=== PATIENT | male | born 1930 | race Caucasian/White ===

== ENCOUNTER 2017-11-24 13:32 | Inpatient (IN) | payer MEDICARE, BC ==
[~2017-11-24] VITALS: Ht 179.1 cm; Wt 78.5 kg
[2017-11-24] MEDS ORDERED: LORazepam 2 MG/ML VIAL IM ONE ×2 (13:45→15:00)
[2017-11-24] MEDS ORDERED: HALOPERIDOL LACT 5 MG/ML VIAL. IM ONE (14:00)
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
[2017-11-24 14:28] LABS: BASO % 1 % (0-3); EOS # 0.2 x10^3/uL (0.0-0.7); EOS % 2 % (0-3); HEMATOCRIT 31.5 % (39.0-53.0); HEMOGLOBIN 10.1 g/dL (13.0-17.5); LYMPH # 1.2 x10^3/uL (1.0-4.8); LYMPH % 16 % (24-48); MEAN CORPUSCULAR HEMOGLOBIN 29 pg (25-35); MEAN CORPUSCULAR HGB CONC 32 g/dL (31-37); MEAN CORPUSCULAR VOLUME 90 fL (79-100); MONO # 0.9 x10^3/uL (0.0-1.1); MONO % 13 % (0-9); NEUT # 5.2 x10^3uL (1.8-7.7); NEUT % 69 % (31-73); PLATELET COUNT 309 x10^3/uL (140-400); RED BLOOD COUNT 3.51 x10^6/uL (4.30-5.70); RED CELL DISTRIBUTION WIDTH 18.2 % (11.5-14.5); WHITE BLOOD COUNT 7.5 x10^3/uL (4.0-11.0)
[2017-11-24 14:42] LABS: ALBUMIN 2.8 g/dL (3.4-5.0); ALBUMIN/GLOBULIN RATIO 0.7 (1.0-1.7); CALCIUM 8.8 mg/dL (8.5-10.1); CREATININE 2.2 mg/dL (0.7-1.3); GFR 28.4; MAGNESIUM 2.2 mg/dL (1.8-2.4); TOTAL BILIRUBIN 0.5 mg/dL (0.2-1.0); TOTAL PROTEIN 6.9 g/dL (6.4-8.2)
[2017-11-24 14:48] LABS: BILIRUBIN,URINE NEG (NEG); CLARITY,URINE CLEAR; COLOR,URINE AMBER; GLUCOSE,URINE NEG (NEG); NITRITE,URINE NEG (NEG); UROBILINOGEN,URINE 0.2 mg/dL (0.2 mg/dL)
[2017-11-24 14:49] LABS: BACTERIA,URINE 0 /HPF (0-FEW); HYALINE CASTS, URINE MOD /HPF; SQUAMOUS EPITHELIAL CELL,UR MOD /LPF
[2017-11-24] MEDS ORDERED: IV DEXTROSE 5% 1,000 ML IV ONE (16:00)
--- NOTE | 2017-11-24 17:35 | EKG ---
[address] [address] Test Date: 2017-11-24 Test Time: 15:06:18 Pat Name: CORAZON REESE Department: Room: [address] [place] [address] Gender: M Tumbler Drier Operator: ABHISHEK : [id number] Requested By: KEATON SANTOS Order Number: [id number] Reading MD: Chavez Griffin Measurements Intervals [place] Rate: 95 P: 90 WV: 156 QRS: 10 QRSD: 84 T: 152 QT: 348 QTc: 441 Interpretive Statements ATRIAL FIBRILLATION LOW LIMB LEAD VOLTAGE QRS(T) CONTOUR ABNORMALITY CONSIDER ANTEROLATERAL MYOCARDIAL DAMAGE ST & T ABNORMALITY, CONSIDER ANTERIOR ISCHEMIA OR LEFT VENTRICULAR STRAIN ABNORMAL ECG Electronically Signed On 12-03-2017 9:20:44 HARDWARE ENGINEER by Chavez Griffin
[2017-11-24 17:42] VITALS: BP 115/74
[2017-11-24] MEDS ORDERED: MAGNESIUM HYDROXIDE 2,400 MG/30 ML ORAL.SUSP. PO PRN (18:15)
[2017-11-24] MEDS ORDERED: MAG HYDROX/AL HYDROX/SIMETH 30 ML ORAL.SUSP PO PRN (18:15)
[2017-11-24] MEDS ORDERED: METHYL SALICYLATE/MENTHOL TOPICAL OINTMENT 29GM TUBE. TP PRN (18:15)
--- NOTE | 2017-11-24 18:30 | PDOC ---
Exam Note: Margarito Note: Please also refer to the separate dictated note~for this date of service dictated separately.~Patient seen individually. Discussed the patient with Nursing staff reviewed the chart.~Reviewed interim history and current functioning. Reviewed vital signs,~Labs/ Radiology~and current medications noted below. Continue current treatment with the changes noted in the dictated addendum note Assessment: Vital Signs: Vital Signs Date Time Temp Pulse Resp B/P (MAP) Pulse Ox O2 Delivery O2 Flow Rate FiO2 11/24/17 17:42 98.0 93 22 115/74 (88) 100 11/24/17 13:32 Room Air Labs: Laboratory Tests Test 11/24/17 14:10 11/24/17 14:18 White Blood Count 7.5 x10^3/uL (4.0-11.0) Red Blood Count 3.51 x10^6/uL (4.30-5.70) L Hemoglobin 10.1 g/dL (13.0-17.5) L Hematocrit 31.5 % (39.0-53.0) L Mean Corpuscular Volume 90 fL (79-100) Mean Corpuscular Hemoglobin 29 pg (25-35) Mean Corpuscular Hemoglobin Concent 32 g/dL (31-37) Red Cell Distribution Width 18.2 % (11.5-14.5) H Platelet Count 309 x10^3/uL (140-400) Neutrophils (%) (Auto) 69 % (31-73) Lymphocytes (%) (Auto) 16 % (24-48) L Monocytes (%) (Auto) 13 % (0-9) H Eosinophils (%) (Auto) 2 % (0-3) Basophils (%) (Auto) 1 % (0-3) Neutrophils # (Auto) 5.2 x10^3uL (1.8-7.7) Lymphocytes # (Auto) 1.2 x10^3/uL (1.0-4.8) Monocytes # (Auto) 0.9 x10^3/uL (0.0-1.1) Eosinophils # (Auto) 0.2 x10^3/uL (0.0-0.7) Basophils # (Auto) 0.0 x10^3/uL (0.0-0.2) Sodium Level 146 mmol/L (136-145) H Potassium Level 4.0 mmol/L (3.5-5.1) Chloride Level 113 mmol/L (98-107) H Carbon Dioxide Level 24 mmol/L (21-32) Anion Gap 9 (6-14) Blood Urea Nitrogen 27 mg/dL (8-26) H Creatinine 2.2 mg/dL (0.7-1.3) H Estimated GFR (Cockcroft-Gault) 28.4 BUN/Creatinine Ratio 12 (6-20) Glucose Level 104 mg/dL (70-99) H Calcium Level 8.8 mg/dL (8.5-10.1) Magnesium Level 2.2 mg/dL (1.8-2.4) Total Bilirubin 0.5 mg/dL (0.2-1.0) Aspartate Amino Transferase (AST) 24 U/L (15-37) Alanine Aminotransferase (ALT) 18 U/L (16-63) Alkaline Phosphatase 102 U/L (46-116) Creatine Kinase 221 U/L (39-308) Troponin I Quantitative 0.072 ng/mL (0-0.055) H Total Protein 6.9 g/dL (6.4-8.2) Albumin 2.8 g/dL (3.4-5.0) L Albumin/Globulin Ratio 0.7 (1.0-1.7) L Urine Collection Type U cath Urine Color Lety Urine Clarity Clear Urine pH 5.0 Urine Specific [place] 1.015 Urine Protein Trace (NEG-TRACE) Urine Glucose (UA) Neg mg/dL (NEG) Urine Ketones (Stick) 15 mg/dL (NEG) Urine Blood Neg (NEG) Urine Nitrite Neg (NEG) Urine Bilirubin Neg (NEG) Urine Urobilinogen Dipstick 0.2 mg/dL (0.2 mg/dL) Urine Leukocyte Esterase Neg (NEG) Urine RBC 3-5 /HPF (0-2) Urine WBC 1-4 /HPF (0-4) Urine Squamous Epithelial Cells Mod /LPF Urine Bacteria 0 /HPF (0-FEW) Urine Hyaline Casts Mod /HPF Urine Mucus Mod /LPF Current Medications: Meds: Current Medications Lorazepam (Ativan) 1 mg 1X ONCE IM Last administered on 11/24/17t 13:40; Start 11/24/17 at 13:45; Stop 11/24/17 at 13:46; Status DC Haloperidol Lactate (Haldol) 5 mg 1X ONCE IM Last administered on 11/24/17 14:00; Start 11/24/17 at 14:00; Stop 11/24/17 at 14:01; Status DC Lorazepam (Ativan) 1 mg 1X ONCE IM Last administered on 11/24/17 14:59; Start 11/24/17 at 15:00; Stop 11/24/17 at 15:02; Status DC Dextrose 1,000 ml @ 1,000 mls/hr 1X ONCE IV Last administered on 11/24/17 16:00; Start 11/24/17 at 16:00; Stop 11/24/17 at 17:05; Status DC Acetaminophen (Tylenol) 650 mg PRN Q6HRS PRN PO PAIN / TEMP; Start 11/24/17 at 18:15; Status UNV Multi-Ingredient Ointment (Analgesic Orient) 1 alba PRN QID PRN TP MUSCLE PAIN; Start 11/24/17 at 18:15; Status UNV Al Hydroxide/Mg Hydroxide (Mylanta Plus Xs) 15 ml PRN AFTMEALHC PRN PO DYSPEPSIA; Start 11/24/17 at 18:15; Status UNV Magnesium Hydroxide (Milk Of Magnesia) 2,400 mg PRN QHS PRN PO CONSTIPATION; Start 11/24/17 at 18:15; Status UNV I have reviewed the current psychotropics carefully including drug interactions. Risk benefit ratio favors no change other than as noted in my dictated progress note. Diagnosis: Problems: (1) Anxiety disorder (2) Dementia in Alzheimer's disease with delusions (3) Dementia in Alzheimer's disease with depression (4) Dementia, vascular, with depression (5) Dementia, vascular, with delusions (6) Impulse control disorder LORA WEST MD Nov 24, 2017 18:30
[2017-11-24] MEDS ORDERED: DILT120C80 PO (18:49)
[2017-11-24] MEDS ORDERED: ASPI81TA50 PO (18:49)
[2017-11-24] MEDS ORDERED: HYDR-2758 PO (18:49)
[2017-11-24] MEDS ORDERED: OXYC-323 PO (18:49)
[2017-11-24] MEDS ORDERED: ONDA4TAB12 PO (18:49)
[2017-11-24] MEDS ORDERED: ALLO300T67 PO (18:49)
[2017-11-24] MEDS ORDERED: LIDO30CR TP (18:49)
[2017-11-24] MEDS ORDERED: METO25TA4 PO (18:49)
[2017-11-24] MEDS ORDERED: ATOR20TA58 PO (18:49)
[2017-11-24] MEDS ORDERED: FINA5TAB4 PO (18:49)
[2017-11-24] MEDS ORDERED: TAMS0.4C2 PO (18:49)
[2017-11-24] MEDS ORDERED: LORA0.5T PO (18:50)
--- NOTE | 2017-11-24 19:52 | PDOC ---
Exam Note: Margarito Note: Please also refer to the separate dictated note~for this date of service dictated separately.~Patient seen individually. Discussed the patient with Nursing staff reviewed the chart.~Reviewed interim history and current functioning. Reviewed vital signs,~Labs/ Radiology~and current medications noted below. Continue current treatment with the changes noted in the dictated addendum note Assessment: Vital Signs: Vital Signs Date Time Temp Pulse Resp B/P (MAP) Pulse Ox O2 Delivery O2 Flow Rate FiO2 11/24/17 17:42 98.0 93 22 115/74 (88) 100 11/24/17 13:32 Room Air Labs: Laboratory Tests Test 11/24/17 14:10 11/24/17 14:18 White Blood Count 7.5 x10^3/uL (4.0-11.0) Red Blood Count 3.51 x10^6/uL (4.30-5.70) L Hemoglobin 10.1 g/dL (13.0-17.5) L Hematocrit 31.5 % (39.0-53.0) L Mean Corpuscular Volume 90 fL (79-100) Mean Corpuscular Hemoglobin 29 pg (25-35) Mean Corpuscular Hemoglobin Concent 32 g/dL (31-37) Red Cell Distribution Width 18.2 % (11.5-14.5) H Platelet Count 309 x10^3/uL (140-400) Neutrophils (%) (Auto) 69 % (31-73) Lymphocytes (%) (Auto) 16 % (24-48) L Monocytes (%) (Auto) 13 % (0-9) H Eosinophils (%) (Auto) 2 % (0-3) Basophils (%) (Auto) 1 % (0-3) Neutrophils # (Auto) 5.2 x10^3uL (1.8-7.7) Lymphocytes # (Auto) 1.2 x10^3/uL (1.0-4.8) Monocytes # (Auto) 0.9 x10^3/uL (0.0-1.1) Eosinophils # (Auto) 0.2 x10^3/uL (0.0-0.7) Basophils # (Auto) 0.0 x10^3/uL (0.0-0.2) Sodium Level 146 mmol/L (136-145) H Potassium Level 4.0 mmol/L (3.5-5.1) Chloride Level 113 mmol/L (98-107) H Carbon Dioxide Level 24 mmol/L (21-32) Anion Gap 9 (6-14) Blood Urea Nitrogen 27 mg/dL (8-26) H Creatinine 2.2 mg/dL (0.7-1.3) H Estimated GFR (Cockcroft-Gault) 28.4 BUN/Creatinine Ratio 12 (6-20) Glucose Level 104 mg/dL (70-99) H Calcium Level 8.8 mg/dL (8.5-10.1) Magnesium Level 2.2 mg/dL (1.8-2.4) Total Bilirubin 0.5 mg/dL (0.2-1.0) Aspartate Amino Transferase (AST) 24 U/L (15-37) Alanine Aminotransferase (ALT) 18 U/L (16-63) Alkaline Phosphatase 102 U/L (46-116) Creatine Kinase 221 U/L (39-308) Troponin I Quantitative 0.072 ng/mL (0-0.055) H Total Protein 6.9 g/dL (6.4-8.2) Albumin 2.8 g/dL (3.4-5.0) L Albumin/Globulin Ratio 0.7 (1.0-1.7) L Urine Collection Type U cath Urine Color Lety Urine Clarity Clear Urine pH 5.0 Urine Specific [place] 1.015 Urine Protein Trace (NEG-TRACE) Urine Glucose (UA) Neg mg/dL (NEG) Urine Ketones (Stick) 15 mg/dL (NEG) Urine Blood Neg (NEG) Urine Nitrite Neg (NEG) Urine Bilirubin Neg (NEG) Urine Urobilinogen Dipstick 0.2 mg/dL (0.2 mg/dL) Urine Leukocyte Esterase Neg (NEG) Urine RBC 3-5 /HPF (0-2) Urine WBC 1-4 /HPF (0-4) Urine Squamous Epithelial Cells Mod /LPF Urine Bacteria 0 /HPF (0-FEW) Urine Hyaline Casts Mod /HPF Urine Mucus Mod /LPF Current Medications: Meds: Current Medications Lorazepam (Ativan) 1 mg 1X ONCE IM Last administered on 11/24/17t 13:40; Start 11/24/17 at 13:45; Stop 11/24/17 at 13:46; Status DC Haloperidol Lactate (Haldol) 5 mg 1X ONCE IM Last administered on 11/24/17 14:00; Start 11/24/17 at 14:00; Stop 11/24/17 at 14:01; Status DC Lorazepam (Ativan) 1 mg 1X ONCE IM Last administered on 11/24/17 14:59; Start 11/24/17 at 15:00; Stop 11/24/17 at 15:02; Status DC Dextrose 1,000 ml @ 1,000 mls/hr 1X ONCE IV Last administered on 11/24/17 16:00; Start 11/24/17 at 16:00; Stop 11/24/17 at 17:05; Status DC Acetaminophen (Tylenol) 650 mg PRN Q6HRS PRN PO PAIN / TEMP; Start 11/24/17 at 18:15 Multi-Ingredient Ointment (Analgesic Wink) 1 giovanna PRN QID PRN TP MUSCLE PAIN; Start 11/24/17 at 18:15 Al Hydroxide/Mg Hydroxide (Mylanta Plus Xs) 15 ml PRN AFTMEALHC PRN PO DYSPEPSIA; Start 11/24/17 at 18:15 Magnesium Hydroxide (Milk Of Magnesia) 2,400 mg PRN QHS PRN PO CONSTIPATION; Start 11/24/17 at 18:15 Lorazepam (Ativan) 0.5 mg PRN Q6HRS PRN PO ANXIETY / AGITATION; Start at 19:00 Olanzapine (ZyPREXA ZYDIS) 2.5 mg PRN Q1HR PRN PO PSYCHOSIS; Start 11/24/17 at 19:00 Active Scripts Active Reported Lorazepam 0.5 Mg Tablet 1 Tab PO PRN Q6HRS PRN 14 Days Atorvastatin Calcium 20 Mg Tablet 1 Tab PO HS Aspir-Low (Aspirin) 81 Mg Tablet.dr 1 Tab PO DAILY Diltiazem 24HR Cd (Diltiazem Hcl) 120 Mg Cap.er.24h 1 Cap PO DAILY Finasteride 5 Mg Tablet 1 Tab PO DAILY Hydrocodone-Apap 5-325 (Hydrocodone Bit/Acetaminophen) 1 Each Tablet 1 Tab PO QID Metoprolol Tartrate 25 Mg Tablet 12.5 Mg PO BID Ondansetron Odt (Ondansetron) 4 Mg Tab.rapdis 1 Tab PO PRN Q6-8HRS Percocet 5-325 Mg Tablet (Oxycodone Hcl/Acetaminophen) 1 Each Tablet 1 Tab PO PRN Q4HRS PRN Tamsulosin Hcl 0.4 Mg Cap.er.24h 1 Cap PO HS Zyloprim (Allopurinol) 300 Mg Tablet 300 Mg PO DAILY Lidocaine-Prilocaine Cream (Lidocaine/Prilocaine) 30 Gm Cream..g. 1 Giovanna TP BID I have reviewed the current psychotropics carefully including drug interactions. Risk benefit ratio favors no change other than as noted in my dictated progress note. Diagnosis: Problems: (1) Dementia with behavioral disturbance (2) Anxiety disorder (3) Impulse control disorder (4) Dementia, vascular, with depression (5) Dementia, vascular, with delusions (6) Dementia in Alzheimer's disease with depression (7) Dementia in Alzheimer's disease with delusions LORA WEST MD Nov 24, 2017 19:52
[2017-11-24] MEDS: LORazepam 0.5 MG TABLET PO PRN (20:31)
--- NOTE | 2017-11-24 21:55 | HP ---
ADMIT DATE: 11/24/2017 This note covers elements not covered in my initial note of 11/24/2017. IDENTIFYING DATA: The patient is an 87-year-old male, referred to us from [facility] in [place], [place] by Dr. Mejia, his primary care physician, on account of increasing confusion, agitation, attempts to ambulate without assistance, screaming when by himself, sexually inappropriate, throwing himself on the floor repeatedly. All of this has worsened since he was under anesthesia, a few months back status post hip fracture after he fell at home. He has failed outpatient psychiatric interventions. CHIEF COMPLAINT: "No" The patient not very verbally interactive at all and been quite aggressive in the ER, received PRNs prior to coming up to us. HISTORY OF PRESENT ILLNESS: The patient has a history of dementia, Alzheimer's vascular type. He has been having some short-term memory deficits, but was at home sometime back when he fell, had a hip fracture, was under anesthesia for surgery and since then confusion has worsened along with this delusion, depression, marked aggression. He has had sleep and appetite changes. No active suicidal or homicidal ideation. No clear history of bipolar disorder. PAST PSYCHIATRIC HISTORY: As above. MEDICAL HISTORY: Heart failure, hypertension, chronic atrial fibrillation, abnormal weight loss, status post fracture and surgery, dysphagia, anemia, BPH, gout, chronic pain. DIET: Mechanical, soft honey-thickened. CODE STATUS: DNR. ALLERGIES: DIGOXIN. CURRENT PSYCHOTROPICS: Nothing scheduled other than the Ativan and Haldol he received in the ER due to his aggression prior to this referral, but we will start Zyprexa p.r.n. FAMILY HISTORY: Noncontributory. SOCIAL HISTORY: No history of alcohol, drug abuse, physical, sexual or elder abuse. He is not known to be a perpetrator. REACTION TO HOSPITALIZATION: The patient oblivious of the assets. Supportive family, [facility]. MENTAL STATUS EXAMINATION: The patient was seen individually evening of 11/24/2017. He is not very verbally interactive at all. Perhaps oriented just to himself if that. He is sedated from the PRNs in the ER. Insight, judgment, recent and remote memory, attention, concentration, fund of knowledge poor, consistent with his diagnosis. He seems to be in pain, per nursing observation. IMPRESSION: Major neurocognitive disorder, Alzheimer, vascular with depression, delusion, behavioral disturbance; anxiety disorder, unspecified; impulse control disorder, unspecified. Rest unchanged as above. PLAN: Admit to geropsychiatry unit at [facility]. I will see the patient daily individually from a psychiatric standpoint, medical followup per Dr. Carreno/Dr. Davison. Add Zyprexa p.r.n., observe baseline, then make further changes as clinically indicated. MAN Brayan WEST MD DR: LOVE/rbian JOB#: [id number] / [id number]
[2017-11-24] MEDS: ACETAMINOPHEN 325 MG TABLET PO PRN (22:22)
[2017-11-25] MEDS ORDERED: ONDANSETRON ODT 4 MG TAB.RAPDIS PO PRN (05:45)
[2017-11-25 08:29] LABS: BASO % 0 % (0-3); EOS # 0.1 x10^3/uL (0.0-0.7); EOS % 1 % (0-3); HEMATOCRIT 33.1 % (39.0-53.0); HEMOGLOBIN 10.7 g/dL (13.0-17.5); LYMPH # 0.6 x10^3/uL (1.0-4.8); LYMPH % 7 % (24-48); MEAN CORPUSCULAR HEMOGLOBIN 29 pg (25-35); MEAN CORPUSCULAR HGB CONC 32 g/dL (31-37); MEAN CORPUSCULAR VOLUME 89 fL (79-100); MONO # 0.7 x10^3/uL (0.0-1.1); MONO % 8 % (0-9); NEUT # 6.7 x10^3uL (1.8-7.7); NEUT % 83 % (31-73); PLATELET COUNT 308 x10^3/uL (140-400); RED BLOOD COUNT 3.71 x10^6/uL (4.30-5.70); WHITE BLOOD COUNT 8.1 x10^3/uL (4.0-11.0)
[2017-11-25 08:40] LABS: ALBUMIN 2.7 g/dL (3.4-5.0); ALBUMIN/GLOBULIN RATIO 0.6 (1.0-1.7); CALCIUM 8.7 mg/dL (8.5-10.1); CREATININE 1.9 mg/dL (0.7-1.3); GFR 33.6; MAGNESIUM 2.2 mg/dL (1.8-2.4); POTASSIUM 3.5 mmol/L (3.5-5.1); TOTAL BILIRUBIN 0.8 mg/dL (0.2-1.0); TOTAL PROTEIN 6.9 g/dL (6.4-8.2)
[2017-11-25] MEDS ORDERED: METOPROLOL TART IMMED RELEASE 25 MG TABLET PO SCH (09:00)
[2017-11-25] MEDS: HYDROcodone/APAP 5/325MG 1 TAB TABLET PO SCH ×5 (09:04→20:28)
[2017-11-25] MEDS: FINASTERIDE 5 MG TABLET PO SCH (09:04)
[2017-11-25] MEDS: ASPIRIN ENTERIC COATED 81 MG TABLET.DR. PO SCH (09:05)
[2017-11-25] MEDS: LIDOCAINE/PRILOCAINE TOPICAL CREAM 5GM TUBE. TP SCH ×2 (09:07→20:28)
[2017-11-25] MEDS: ALLOPURINOL 300 MG TABLET. PO SCH (09:07)
[2017-11-25] MEDS: QUEtiapine 25 MG TABLET. PO SCH ×3 (13:37→17:20)
[2017-11-25 14:19] LABS: THYROID STIM HORMONE (TSH) 4.077 uIU/mL (0.358-3.740)
[2017-11-25 16:04] VITALS: BP 111/61
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
--- NOTE | 2017-11-25 19:58 | PDOC ---
Exam Note: Margarito Note: Please also refer to the separate dictated note~for this date of service dictated separately.~Patient seen individually. Discussed the patient with Nursing staff reviewed the chart.~Reviewed interim history and current functioning. Reviewed vital signs,~Labs/ Radiology~and current medications noted below. Continue current treatment with the changes noted in the dictated addendum note Assessment: Vital Signs: Vital Signs Date Time Temp Pulse Resp B/P (MAP) Pulse Ox O2 Delivery O2 Flow Rate FiO2 11/25/17 16:04 97.5 63 18 111/61 (78) 96 Room Air I&O Intake and Output 11/25/17 07:00 Intake Total 1000 ml Balance 1000 ml Intake Oral 0 ml IV Total 1000 ml Labs: Laboratory Tests Test 11/25/17 07:27 White Blood Count 8.1 x10^3/uL (4.0-11.0) Red Blood Count 3.71 x10^6/uL (4.30-5.70) L Hemoglobin 10.7 g/dL (13.0-17.5) L Hematocrit 33.1 % (39.0-53.0) L Mean Corpuscular Volume 89 fL (79-100) Mean Corpuscular Hemoglobin 29 pg (25-35) Mean Corpuscular Hemoglobin Concent 32 g/dL (31-37) Red Cell Distribution Width 18.0 % (11.5-14.5) H Platelet Count 308 x10^3/uL (140-400) Neutrophils (%) (Auto) 83 % (31-73) H Lymphocytes (%) (Auto) 7 % (24-48) L Monocytes (%) (Auto) 8 % (0-9) Eosinophils (%) (Auto) 1 % (0-3) Basophils (%) (Auto) 0 % (0-3) Neutrophils # (Auto) 6.7 x10^3uL (1.8-7.7) Lymphocytes # (Auto) 0.6 x10^3/uL (1.0-4.8) L Monocytes # (Auto) 0.7 x10^3/uL (0.0-1.1) Eosinophils # (Auto) 0.1 x10^3/uL (0.0-0.7) Basophils # (Auto) 0.0 x10^3/uL (0.0-0.2) Sodium Level 143 mmol/L (136-145) Potassium Level 3.5 mmol/L (3.5-5.1) Chloride Level 110 mmol/L (98-107) H Carbon Dioxide Level 22 mmol/L (21-32) Anion Gap 11 (6-14) Blood Urea Nitrogen 26 mg/dL (8-26) Creatinine 1.9 mg/dL (0.7-1.3) H Estimated GFR (Cockcroft-Gault) 33.6 BUN/Creatinine Ratio 14 (6-20) Glucose Level 82 mg/dL (70-99) Calcium Level 8.7 mg/dL (8.5-10.1) Magnesium Level 2.2 mg/dL (1.8-2.4) Total Bilirubin 0.8 mg/dL (0.2-1.0) # Aspartate Amino Transferase (AST) 26 U/L (15-37) Alanine Aminotransferase (ALT) 18 U/L (16-63) Alkaline Phosphatase 103 U/L (46-116) Total Protein 6.9 g/dL (6.4-8.2) Albumin 2.7 g/dL (3.4-5.0) L Albumin/Globulin Ratio 0.6 (1.0-1.7) L Triglycerides Level 60 mg/dL (0-150) Cholesterol Level 90 mg/dL (0-200) LDL Cholesterol, Calculated 34 mg/dL (0-100) VLDL Cholesterol, Calculated 12 mg/dL (0-40) Non-HDL Cholesterol Calculated 46 mg/dL (0-129) HDL Cholesterol 44 mg/dL (40-60) Cholesterol/HDL Ratio 2.0 25-Hydroxy Vitamin D Total 17.0 ng/mL (30-100) L Thyroid Stimulating Hormone (TSH) 4.077 uIU/mL (0.358-3.740) Current Medications: Meds: Current Medications Lorazepam (Ativan) 1 mg 1X ONCE IM Last administered on 11/24/17 13:40; Start 11/24/17 at 13:45; Stop 11/24/17 at 13:46; Status DC Haloperidol Lactate (Haldol) 5 mg 1X ONCE IM Last administered on 11/24/17 14:00; Start 11/24/17 at 14:00; Stop 11/24/17 at 14:01; Status DC Lorazepam (Ativan) 1 mg 1X ONCE IM Last administered on 11/24/17 14:59; Start 11/24/17 at 15:00; Stop 11/24/17 at 15:02; Status DC Dextrose 1,000 ml @ 1,000 mls/hr 1X ONCE IV Last administered on 11/24/17 16:00; Start 11/24/17 at 16:00; Stop 11/24/17 at 17:05; Status DC Acetaminophen (Tylenol) 650 mg PRN Q6HRS PRN PO PAIN / TEMP Last administered on 11/24/17 22:22; Start 11/24/17 at 18:15 Multi-Ingredient Ointment (Analgesic [place]) 1 giovanna PRN QID PRN TP MUSCLE PAIN; Start 11/24/17 at 18:15 Al Hydroxide/Mg Hydroxide (Mylanta Plus Xs) 15 ml PRN AFTMEALHC PRN PO DYSPEPSIA; Start 11/24/17 at 18:15 Magnesium Hydroxide (Milk Of Magnesia) 2,400 mg PRN QHS PRN PO CONSTIPATION; Start 11/24/17 at 18:15 Lorazepam (Ativan) 0.5 mg PRN Q6HRS PRN PO ANXIETY / AGITATION Last administered on 11/24/17 20:31; Start 11/24/17 at 19:00 Olanzapine (ZyPREXA ZYDIS) 2.5 mg PRN Q1HR PRN PO PSYCHOSIS Last administered on 11/25/17 04:15; Start 11/24/17 at 19:00 Allopurinol (Zyloprim) 300 mg DAILY PO Last administered on 11/25/17 09:07; Start 11/25/17 at 09:00 Aspirin (Aspirin Enteric Coated) 81 mg DAILY PO Last administered on 09:05; Start 11/25/17 at 09:00 Atorvastatin Calcium (Lipitor) 20 mg HS PO ; Start 11/25/17 at 21:00 Diltiazem HCl (Cardizem 24hr Cd) 120 mg DAILY PO Last administered on 09:08; Start 11/25/17 at 09:00 Finasteride (Proscar) 5 mg DAILY PO Last administered on 11/25/17 09:04; Start 11/25/17 at 09:00 Acetaminophen/ Hydrocodone Bitart (Lortab 5/325) 1 tab QID PO Last administered on 11/25/17 17:20; Start 11/25/17 at 09:00 Lidocaine/ Prilocaine (Emla) 1 giovanna BID TP Last administered on 11/25/17 09:07 ; Start 11/25/17 at 09:00 Metoprolol Tartrate (Lopressor) 12.5 mg BID PO Last administered on 11/25/17 09:08; Start 11/25/17 at 09:00; Stop 11/25/17 at 12:11; Status DC Ondansetron HCl (Zofran Odt) 4 mg PRN Q6HRS PRN PO NAUSEA; Start 11/25/17 at 05:45 Tamsulosin HCl (Flomax) 0.4 mg HS PO ; Start 11/25/17 at 21:00 Trazodone HCl (Desyrel) 50 mg QHS PO ; Start 11/25/17 at 21:00 Trazodone HCl (Desyrel) 50 mg PRN QHS PRN PO INSOMNIA; Start 11/25/17 at 10:45 Sertraline HCl (Zoloft) 25 mg DAILY PO ; Start 11/26/17 at 09:00 Quetiapine Fumarate (SEROquel) 12.5 mg DAILY@0900,1300,1700 PO Last administered on 11/25/17 17:20; Start 11/25/17 at 13:00 Metoprolol Tartrate (Lopressor) 25 mg BID PO ; Start 11/25/17 at 21:00 Active Scripts Active Reported Lorazepam 0.5 Mg Tablet 1 Tab PO PRN Q6HRS PRN 14 Days Atorvastatin Calcium 20 Mg Tablet 1 Tab PO HS Aspir-Low (Aspirin) 81 Mg Tablet.dr 1 Tab PO DAILY Diltiazem 24HR Cd (Diltiazem Hcl) 120 Mg Cap.er.24h 1 Cap PO DAILY Finasteride 5 Mg Tablet 1 Tab PO DAILY Hydrocodone-Apap 5-325 (Hydrocodone Bit/Acetaminophen) 1 Each Tablet 1 Tab PO QID Metoprolol Tartrate 25 Mg Tablet 12.5 Mg PO BID Ondansetron Odt (Ondansetron) 4 Mg Tab.rapdis 1 Tab PO PRN Q6-8HRS Percocet 5-325 Mg Tablet (Oxycodone Hcl/Acetaminophen) 1 Each Tablet 1 Tab PO PRN Q4HRS PRN Tamsulosin Hcl 0.4 Mg Cap.er.24h 1 Cap PO HS Zyloprim (Allopurinol) 300 Mg Tablet 300 Mg PO DAILY Lidocaine-Prilocaine Cream (Lidocaine/Prilocaine) 30 Gm Cream..g. 1 Giovanna TP BID I have reviewed the current psychotropics carefully including drug interactions. Risk benefit ratio favors no change other than as noted in my dictated progress note. 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
[2017-11-25 20:14] LABS: T3 TOTAL 59 ng/dL (71-180); THYROXINE 5.8 ug/dL (4.5-12.0)
[2017-11-25] MEDS: traZODone 50 MG TABLET. PO SCH (20:22)
[2017-11-25] MEDS: TAMSULOSIN 0.4 MG CAP.ER.24H. PO SCH (20:22)
[2017-11-25] MEDS: METOPROLOL TART IMMED RELEASE 25 MG TABLET PO SCH (20:27)
[2017-11-25] MEDS: ATORVASTATIN CALCIUM 20 MG TABLET PO SCH (20:27)
[2017-11-25 23:15] VITALS: BP 120/63
[2017-11-25] MEDS: traZODone 50 MG TABLET. PO PRN (23:44)
[2017-11-26] VITALS (8 sets, daily range): BP systolic 99–122; BP diastolic 49–77
[2017-11-26 01:07] LABS: HEMOGLOBIN A1C 4.6 % (4.8-5.6)
[2017-11-26] MEDS: ALLOPURINOL 300 MG TABLET. PO SCH (08:44)
[2017-11-26] MEDS: FINASTERIDE 5 MG TABLET PO SCH (08:44)
[2017-11-26] MEDS: ASPIRIN ENTERIC COATED 81 MG TABLET.DR. PO SCH (08:44)
[2017-11-26] MEDS: METOPROLOL TART IMMED RELEASE 25 MG TABLET PO SCH ×2 (08:44→20:17)
[2017-11-26] MEDS: QUEtiapine 25 MG TABLET. PO SCH ×3 (08:45→17:50)
[2017-11-26] MEDS: LIDOCAINE/PRILOCAINE TOPICAL CREAM 5GM TUBE. TP SCH ×2 (08:47→20:19)
[2017-11-26] MEDS: SERTRALINE 25 MG TABLET. PO SCH (08:47)
[2017-11-26] MEDS: HYDROcodone/APAP 5/325MG 1 TAB TABLET PO SCH ×4 (08:48→20:19)
--- NOTE | 2017-11-26 17:50 | PDOC ---
Exam Note: Margarito Note: Please also refer to the separate dictated note~for this date of service dictated separately.~Patient seen individually. Discussed the patient with Nursing staff reviewed the chart.~Reviewed interim history and current functioning. Reviewed vital signs,~Labs/ Radiology~and current medications noted below. Continue current treatment with the changes noted in the dictated addendum note Assessment: Vital Signs: Vital Signs Date Time Temp Pulse Resp B/P (MAP) Pulse Ox O2 Delivery O2 Flow Rate FiO2 11/26/17 16:01 97.8 64 20 109/70 (83) 97 11/26/17 15:00 Room Air I&O Intake and Output 11/26/17 06:59 Intake Total 480 ml Balance 480 ml Intake Oral 480 ml # Bowel Movements 2 Current Medications: Meds: Current Medications Lorazepam (Ativan) 1 mg 1X ONCE IM Last administered on 11/24/17 13:40; Start 11/24/17 at 13:45; Stop 11/24/17 at 13:46; Status DC Haloperidol Lactate (Haldol) 5 mg 1X ONCE IM Last administered on 11/24/17 14:00; Start 11/24/17 at 14:00; Stop 11/24/17 at 14:01; Status DC Lorazepam (Ativan) 1 mg 1X ONCE IM Last administered on 11/24/17 14:59; Start 11/24/17 at 15:00; Stop 11/24/17 at 15:02; Status DC Dextrose 1,000 ml @ 1,000 mls/hr 1X ONCE IV Last administered on 11/24/17 16:00; Start 11/24/17 at 16:00; Stop 11/24/17 at 17:05; Status DC Acetaminophen (Tylenol) 650 mg PRN Q6HRS PRN PO PAIN / TEMP Last administered on 11/24/17 22:22; Start 11/24/17 at 18:15 Multi-Ingredient Ointment (Analgesic [place]) 1 giovanna PRN QID PRN TP MUSCLE PAIN; Start 11/24/17 at 18:15 Al Hydroxide/Mg Hydroxide (Mylanta Plus Xs) 15 ml PRN AFTMEALHC PRN PO DYSPEPSIA; Start 11/24/17 at 18:15 Magnesium Hydroxide (Milk Of Magnesia) 2,400 mg PRN QHS PRN PO CONSTIPATION; Start 11/24/17 at 18:15 Lorazepam (Ativan) 0.5 mg PRN Q6HRS PRN PO ANXIETY / AGITATION Last administered on 11/24/17 20:31; Start 11/24/17 at 19:00 Olanzapine (ZyPREXA ZYDIS) 2.5 mg PRN Q1HR PRN PO PSYCHOSIS Last administered on 11/25/17 04:15; Start 11/24/17 at 19:00 Allopurinol (Zyloprim) 300 mg DAILY PO Last administered on 11/26/17 08:44; Start 11/25/17 at 09:00 Aspirin (Aspirin Enteric Coated) 81 mg DAILY PO Last administered on 08:44; Start 11/25/17 at 09:00 Atorvastatin Calcium (Lipitor) 20 mg HS PO Last administered on 11/25/17 20: 27; Start 11/25/17 at 21:00 Diltiazem HCl (Cardizem 24hr Cd) 120 mg DAILY PO Last administered on 08:44; Start 11/25/17 at 09:00 Finasteride (Proscar) 5 mg DAILY PO Last administered on 11/26/17 08:44; Start 11/25/17 at 09:00 Acetaminophen/ Hydrocodone Bitart (Lortab 5/325) 1 tab QID PO Last administered on 11/26/17 13:58; Start 11/25/17 at 09:00 Lidocaine/ Prilocaine (Emla) 1 giovanna BID TP Last administered on 11/26/17 08:47 ; Start 11/25/17 at 09:00 Metoprolol Tartrate (Lopressor) 12.5 mg BID PO Last administered on 11/25/17 09:08; Start 11/25/17 at 09:00; Stop 11/25/17 at 12:11; Status DC Ondansetron HCl (Zofran Odt) 4 mg PRN Q6HRS PRN PO NAUSEA; Start 11/25/17 at 05:45 Tamsulosin HCl (Flomax) 0.4 mg HS PO Last administered on 11/25/17 20:22; Start 11/25/17 at 21:00 Trazodone HCl (Desyrel) 50 mg QHS PO Last administered on 11/25/17 20:22; Start 11/25/17 at 21:00 Trazodone HCl (Desyrel) 50 mg PRN QHS PRN PO INSOMNIA Last administered on 23:44; Start 11/25/17 at 10:45 Sertraline HCl (Zoloft) 25 mg DAILY PO Last administered on 11/26/17 08:47; Start 11/26/17 at 09:00 Quetiapine Fumarate (SEROquel) 12.5 mg DAILY@0900,1300,1700 PO Last administered on 11/26/17 13:56; Start 11/25/17 at 13:00 Metoprolol Tartrate (Lopressor) 25 mg BID PO Last administered on 11/26/17 08 :44; Start 11/25/17 at 21:00 Active Scripts Active Reported Lorazepam 0.5 Mg Tablet 1 Tab PO PRN Q6HRS PRN 14 Days Atorvastatin Calcium 20 Mg Tablet 1 Tab PO HS Aspir-Low (Aspirin) 81 Mg Tablet.dr 1 Tab PO DAILY Diltiazem 24HR Cd (Diltiazem Hcl) 120 Mg Cap.er.24h 1 Cap PO DAILY Finasteride 5 Mg Tablet 1 Tab PO DAILY Hydrocodone-Apap 5-325 (Hydrocodone Bit/Acetaminophen) 1 Each Tablet 1 Tab PO QID Metoprolol Tartrate 25 Mg Tablet 12.5 Mg PO BID Ondansetron Odt (Ondansetron) 4 Mg Tab.rapdis 1 Tab PO PRN Q6-8HRS Percocet 5-325 Mg Tablet (Oxycodone Hcl/Acetaminophen) 1 Each Tablet 1 Tab PO PRN Q4HRS PRN Tamsulosin Hcl 0.4 Mg Cap.er.24h 1 Cap PO HS Zyloprim (Allopurinol) 300 Mg Tablet 300 Mg PO DAILY Lidocaine-Prilocaine Cream (Lidocaine/Prilocaine) 30 Gm Cream..g. 1 Giovanna TP BID I have reviewed the current psychotropics carefully including drug interactions. Risk benefit ratio favors no change other than as noted in my dictated progress note. Diagnosis: Problems: (1) Dementia with behavioral disturbance (2) Dementia in Alzheimer's disease with delusions (3) Dementia in Alzheimer's disease with depression (4) Dementia, vascular, with delusions (5) Dementia, vascular, with depression (6) Impulse control disorder (7) Anxiety disorder LORA WEST MD Nov 26, 2017 17:50
--- NOTE | 2017-11-26 19:55 | PDOC ---
Exam Note: Margarito Note: Please also refer to the separate dictated note~for this date of service dictated separately.~Patient seen individually. Discussed the patient with Nursing staff reviewed the chart.~Reviewed interim history and current functioning. Reviewed vital signs,~Labs/ Radiology~and current medications noted below. Continue current treatment with the changes noted in the dictated addendum note Assessment: Vital Signs: Vital Signs Date Time Temp Pulse Resp B/P (MAP) Pulse Ox O2 Delivery O2 Flow Rate FiO2 11/26/17 19:21 97.5 82 16 119/68 (85) 95 Room Air I&O Intake and Output 11/26/17 07:00 Intake Total 480 ml Balance 480 ml Intake Oral 480 ml # Bowel Movements 2 Current Medications: Meds: Current Medications Lorazepam (Ativan) 1 mg 1X ONCE IM Last administered on 11/24/17 13:40; Start 11/24/17 at 13:45; Stop 11/24/17 at 13:46; Status DC Haloperidol Lactate (Haldol) 5 mg 1X ONCE IM Last administered on 11/24/17 14:00; Start 11/24/17 at 14:00; Stop 11/24/17 at 14:01; Status DC Lorazepam (Ativan) 1 mg 1X ONCE IM Last administered on 11/24/17 14:59; Start 11/24/17 at 15:00; Stop 11/24/17 at 15:02; Status DC Dextrose 1,000 ml @ 1,000 mls/hr 1X ONCE IV Last administered on 11/24/17 16:00; Start 11/24/17 at 16:00; Stop 11/24/17 at 17:05; Status DC Acetaminophen (Tylenol) 650 mg PRN Q6HRS PRN PO PAIN / TEMP Last administered on 11/24/17 22:22; Start 11/24/17 at 18:15 Multi-Ingredient Ointment (Analgesic [place]) 1 giovanna PRN QID PRN TP MUSCLE PAIN; Start 11/24/17 at 18:15 Al Hydroxide/Mg Hydroxide (Mylanta Plus Xs) 15 ml PRN AFTMEALHC PRN PO DYSPEPSIA; Start 11/24/17 at 18:15 Magnesium Hydroxide (Milk Of Magnesia) 2,400 mg PRN QHS PRN PO CONSTIPATION; Start 11/24/17 at 18:15 Lorazepam (Ativan) 0.5 mg PRN Q6HRS PRN PO ANXIETY / AGITATION Last administered on 11/24/17 20:31; Start 11/24/17 at 19:00 Olanzapine (ZyPREXA ZYDIS) 2.5 mg PRN Q1HR PRN PO PSYCHOSIS Last administered on 11/25/17 04:15; Start 11/24/17 at 19:00 Allopurinol (Zyloprim) 300 mg DAILY PO Last administered on 11/26/17 08:44; Start 11/25/17 at 09:00 Aspirin (Aspirin Enteric Coated) 81 mg DAILY PO Last administered on 08:44; Start 11/25/17 at 09:00 Atorvastatin Calcium (Lipitor) 20 mg HS PO Last administered on 11/25/17 20: 27; Start 11/25/17 at 21:00 Diltiazem HCl (Cardizem 24hr Cd) 120 mg DAILY PO Last administered on 08:44; Start 11/25/17 at 09:00 Finasteride (Proscar) 5 mg DAILY PO Last administered on 11/26/17 08:44; Start 11/25/17 at 09:00 Acetaminophen/ Hydrocodone Bitart (Lortab 5/325) 1 tab QID PO Last administered on 11/26/17 17:48; Start 11/25/17 at 09:00 Lidocaine/ Prilocaine (Emla) 1 giovanna BID TP Last administered on 11/26/17 08:47 ; Start 11/25/17 at 09:00 Metoprolol Tartrate (Lopressor) 12.5 mg BID PO Last administered on 11/25/17 09:08; Start 11/25/17 at 09:00; Stop 11/25/17 at 12:11; Status DC Ondansetron HCl (Zofran Odt) 4 mg PRN Q6HRS PRN PO NAUSEA; Start 11/25/17 at 05:45 Tamsulosin HCl (Flomax) 0.4 mg HS PO Last administered on 11/25/17 20:22; Start 11/25/17 at 21:00 Trazodone HCl (Desyrel) 50 mg QHS PO Last administered on 11/25/17 20:22; Start 11/25/17 at 21:00 Trazodone HCl (Desyrel) 50 mg PRN QHS PRN PO INSOMNIA Last administered on 23:44; Start 11/25/17 at 10:45 Sertraline HCl (Zoloft) 25 mg DAILY PO Last administered on 11/26/17 08:47; Start 11/26/17 at 09:00 Quetiapine Fumarate (SEROquel) 12.5 mg DAILY@0900,1300,1700 PO Last administered on 11/26/17 17:50; Start 11/25/17 at 13:00 Metoprolol Tartrate (Lopressor) 25 mg BID PO Last administered on 11/26/17 08 :44; Start 11/25/17 at 21:00 Active Scripts Active Reported Lorazepam 0.5 Mg Tablet 1 Tab PO PRN Q6HRS PRN 14 Days Atorvastatin Calcium 20 Mg Tablet 1 Tab PO HS Aspir-Low (Aspirin) 81 Mg Tablet.dr 1 Tab PO DAILY Diltiazem 24HR Cd (Diltiazem Hcl) 120 Mg Cap.er.24h 1 Cap PO DAILY Finasteride 5 Mg Tablet 1 Tab PO DAILY Hydrocodone-Apap 5-325 (Hydrocodone Bit/Acetaminophen) 1 Each Tablet 1 Tab PO QID Metoprolol Tartrate 25 Mg Tablet 12.5 Mg PO BID Ondansetron Odt (Ondansetron) 4 Mg Tab.rapdis 1 Tab PO PRN Q6-8HRS Percocet 5-325 Mg Tablet (Oxycodone Hcl/Acetaminophen) 1 Each Tablet 1 Tab PO PRN Q4HRS PRN Tamsulosin Hcl 0.4 Mg Cap.er.24h 1 Cap PO HS Zyloprim (Allopurinol) 300 Mg Tablet 300 Mg PO DAILY Lidocaine-Prilocaine Cream (Lidocaine/Prilocaine) 30 Gm Cream..g. 1 Giovanna TP BID I have reviewed the current psychotropics carefully including drug interactions. Risk benefit ratio favors no change other than as noted in my dictated progress note. Diagnosis: Problems: (1) Anxiety disorder (2) Impulse control disorder (3) Dementia, vascular, with depression (4) Dementia, vascular, with delusions (5) Dementia in Alzheimer's disease with depression (6) Dementia in Alzheimer's disease with delusions (7) Dementia with behavioral disturbance (8) Hypernatremia (9) Acute renal insufficiency (10) Troponin I above reference range LORA WEST MD Nov 26, 2017 19:55
[2017-11-26] MEDS: TAMSULOSIN 0.4 MG CAP.ER.24H. PO SCH (20:17)
[2017-11-26] MEDS: traZODone 50 MG TABLET. PO SCH (20:17)
[2017-11-26] MEDS: ATORVASTATIN CALCIUM 20 MG TABLET PO SCH (20:17)
[2017-11-26] MEDS: LORazepam 0.5 MG TABLET PO PRN (22:26)
[2017-11-27] MEDS: traZODone 50 MG TABLET. PO PRN ×2 (00:55→22:36)
[2017-11-27] MEDS ORDERED: oxyCODONE/APAP 5/325 1 TAB TABLET PO PRN (01:15)
--- NOTE | 2017-11-27 01:25 | PDOC ---
PROGRESS NOTES Assessment I was called by patient's nurse at 0115, who states pt has been "screaming in pain" all night. States they have already tried to give him his scheduled Lortab (at approx 2013), PRN lorazepam, and applied pain balm to his legs. Nothing has helped according to his nurse. Pt has a hx of being on oxycodone 5/ 325 po q 4 hours PRN for pain at the correction. I will restart this and d/c his hydrocodone. I urged pt's nurse to continue to use the non-medication means of trying to control pain and use the oxycodone only as a last resort. Pt is not able to adequately communicate his concerns, and pt's nurse states that he was also yelling out like this at the correction. Certainly it is likely that his mental health plays a role in his ability to deal with pain. Per nursing, there are no new physical findings to suggest that pt has a new problem causing him pain. I have asked them to do at least hourly checks overnight to make sure pt is not deteriorating. Dr. Carreno to address further in the morning. Problems: Objective Vital Signs Date Time Temp Pulse Resp B/P (MAP) Pulse Ox O2 Delivery O2 Flow Rate FiO2 11/26/17 23:10 97.9 78 26 99/58 (72) 95 Room Air Intake and Output 11/27/17 07:00 Intake Total 480 ml Balance 480 ml Intake Oral 480 ml # Bowel Movements 1 Review of Relevant I have reviewed the following items tarah (where applicable) has been applied. Labs Laboratory Tests Test 11/25/17 07:27 White Blood Count 8.1 x10^3/uL (4.0-11.0) Red Blood Count 3.71 x10^6/uL (4.30-5.70) Hemoglobin 10.7 g/dL (13.0-17.5) Hematocrit 33.1 % (39.0-53.0) Mean Corpuscular Volume 89 fL (79-100) Mean Corpuscular Hemoglobin 29 pg (25-35) Mean Corpuscular Hemoglobin Concent 32 g/dL (31-37) Red Cell Distribution Width 18.0 % (11.5-14.5) Platelet Count 308 x10^3/uL (140-400) Neutrophils (%) (Auto) 83 % (31-73) Lymphocytes (%) (Auto) 7 % (24-48) Monocytes (%) (Auto) 8 % (0-9) Eosinophils (%) (Auto) 1 % (0-3) Basophils (%) (Auto) 0 % (0-3) Neutrophils # (Auto) 6.7 x10^3uL (1.8-7.7) Lymphocytes # (Auto) 0.6 x10^3/uL (1.0-4.8) Monocytes # (Auto) 0.7 x10^3/uL (0.0-1.1) Eosinophils # (Auto) 0.1 x10^3/uL (0.0-0.7) Basophils # (Auto) 0.0 x10^3/uL (0.0-0.2) Sodium Level 143 mmol/L (136-145) Potassium Level 3.5 mmol/L (3.5-5.1) Chloride Level 110 mmol/L (98-107) Carbon Dioxide Level 22 mmol/L (21-32) Anion Gap 11 (6-14) Blood Urea Nitrogen 26 mg/dL (8-26) Creatinine 1.9 mg/dL (0.7-1.3) Estimated GFR (Cockcroft-Gault) 33.6 BUN/Creatinine Ratio 14 (6-20) Glucose Level 82 mg/dL (70-99) Hemoglobin A1c 4.6 % (4.8-5.6) Calcium Level 8.7 mg/dL (8.5-10.1) Magnesium Level 2.2 mg/dL (1.8-2.4) Total Bilirubin 0.8 mg/dL (0.2-1.0) Aspartate Amino Transf (AST/SGOT) 26 U/L (15-37) Alanine Aminotransferase (ALT/SGPT) 18 U/L (16-63) Alkaline Phosphatase 103 U/L (46-116) Total Protein 6.9 g/dL (6.4-8.2) Albumin 2.7 g/dL (3.4-5.0) Albumin/Globulin Ratio 0.6 (1.0-1.7) Triglycerides Level 60 mg/dL (0-150) Cholesterol Level 90 mg/dL (0-200) LDL Cholesterol, Calculated 34 mg/dL (0-100) VLDL Cholesterol, Calculated 12 mg/dL (0-40) Non-HDL Cholesterol Calculated 46 mg/dL (0-129) HDL Cholesterol 44 mg/dL (40-60) Cholesterol/HDL Ratio 2.0 25-Hydroxy Vitamin D Total 17.0 ng/mL (30-100) Thyroid Stimulating Hormone (TSH) 4.077 uIU/mL (0.358-3.740) Thyroxine (T4) 5.8 ug/dL (4.5-12.0) Total Triiodothyronine 59 ng/dL (71-180) Rapid Plasma Reagin Non reactive (Non Reactive) Medications Current Medications Lorazepam (Ativan) 1 mg 1X ONCE IM Last administered on 11/24/17 13:40; Start 11/24/17 at 13:45; Stop 11/24/17 at 13:46; Status DC Haloperidol Lactate (Haldol) 5 mg 1X ONCE IM Last administered on 11/24/17 14:00; Start 11/24/17 at 14:00; Stop 11/24/17 at 14:01; Status DC Lorazepam (Ativan) 1 mg 1X ONCE IM Last administered on 11/24/17 14:59; Start 11/24/17 at 15:00; Stop 11/24/17 at 15:02; Status DC Dextrose 1,000 ml @ 1,000 mls/hr 1X ONCE IV Last administered on 11/24/17 16:00; Start 11/24/17 at 16:00; Stop 11/24/17 at 17:05; Status DC Acetaminophen (Tylenol) 650 mg PRN Q6HRS PRN PO PAIN / TEMP Last administered on 11/24/17 22:22; Start 11/24/17 at 18:15 Multi-Ingredient Ointment (Analgesic [place]) 1 giovanna PRN QID PRN TP MUSCLE PAIN Last administered on 11/27/17 00:59; Start 11/24/17 at 18:15 Al Hydroxide/Mg Hydroxide (Mylanta Plus Xs) 15 ml PRN AFTMEALHC PRN PO DYSPEPSIA; Start 11/24/17 at 18:15 Magnesium Hydroxide (Milk Of Magnesia) 2,400 mg PRN QHS PRN PO CONSTIPATION; Start 11/24/17 at 18:15 Lorazepam (Ativan) 0.5 mg PRN Q6HRS PRN PO ANXIETY / AGITATION Last administered on 11/26/17 22:26; Start 11/24/17 at 19:00 Olanzapine (ZyPREXA ZYDIS) 2.5 mg PRN Q1HR PRN PO PSYCHOSIS Last administered on 11/25/17 04:15; Start 11/24/17 at 19:00 Allopurinol (Zyloprim) 300 mg DAILY PO Last administered on 11/26/17 08:44; Start 11/25/17 at 09:00 Aspirin (Aspirin Enteric Coated) 81 mg DAILY PO Last administered on 08:44; Start 11/25/17 at 09:00 Atorvastatin Calcium (Lipitor) 20 mg HS PO Last administered on 11/26/17 20: 17; Start 11/25/17 at 21:00 Diltiazem HCl (Cardizem 24hr Cd) 120 mg DAILY PO Last administered on 08:44; Start 11/25/17 at 09:00 Finasteride (Proscar) 5 mg DAILY PO Last administered on 11/26/17 08:44; Start 11/25/17 at 09:00 Acetaminophen/ Hydrocodone Bitart (Lortab 5/325) 1 tab QID PO Last administered on 11/26/17 20:19; Start 11/25/17 at 09:00; Stop 11/27/17 at 01 :18; Status DC Lidocaine/ Prilocaine (Emla) 1 giovanna BID TP Last administered on 11/26/17 20:19 ; Start 11/25/17 at 09:00 Metoprolol Tartrate (Lopressor) 12.5 mg BID PO Last administered on 11/25/17 09:08; Start 11/25/17 at 09:00; Stop 11/25/17 at 12:11; Status DC Ondansetron HCl (Zofran Odt) 4 mg PRN Q6HRS PRN PO NAUSEA; Start 11/25/17 at 05:45 Tamsulosin HCl (Flomax) 0.4 mg HS PO Last administered on 11/26/17 20:17; Start 11/25/17 at 21:00 Trazodone HCl (Desyrel) 50 mg QHS PO Last administered on 11/26/17 20:17; Start 11/25/17 at 21:00 Trazodone HCl (Desyrel) 50 mg PRN QHS PRN PO INSOMNIA Last administered on 00:55; Start 11/25/17 at 10:45 Sertraline HCl (Zoloft) 25 mg DAILY PO Last administered on 11/26/17 08:47; Start 11/26/17 at 09:00 Quetiapine Fumarate (SEROquel) 12.5 mg DAILY@0900,1300,1700 PO Last administered on 11/26/17 17:50; Start 11/25/17 at 13:00 Metoprolol Tartrate (Lopressor) 25 mg BID PO Last administered on 11/26/17 20 :17; Start 11/25/17 at 21:00 Oxycodone/ Acetaminophen (Percocet 5/325) 1 tab PRN Q6HRS PRN PO PAIN; Start 11/27/17 at 01:15; Status UNV Active Scripts Active Reported Lorazepam 0.5 Mg Tablet 1 Tab PO PRN Q6HRS PRN 14 Days Atorvastatin Calcium 20 Mg Tablet 1 Tab PO HS Aspir-Low (Aspirin) 81 Mg Tablet.dr 1 Tab PO DAILY Diltiazem 24HR Cd (Diltiazem Hcl) 120 Mg Cap.er.24h 1 Cap PO DAILY Finasteride 5 Mg Tablet 1 Tab PO DAILY Hydrocodone-Apap 5-325 (Hydrocodone Bit/Acetaminophen) 1 Each Tablet 1 Tab PO QID Metoprolol Tartrate 25 Mg Tablet 12.5 Mg PO BID Ondansetron Odt (Ondansetron) 4 Mg Tab.rapdis 1 Tab PO PRN Q6-8HRS Percocet 5-325 Mg Tablet (Oxycodone Hcl/Acetaminophen) 1 Each Tablet 1 Tab PO PRN Q4HRS PRN Tamsulosin Hcl 0.4 Mg Cap.er.24h 1 Cap PO HS Zyloprim (Allopurinol) 300 Mg Tablet 300 Mg PO DAILY Lidocaine-Prilocaine Cream (Lidocaine/Prilocaine) 30 Gm Cream..g. 1 Giovanna TP BID Vitals/I & O Vital Sign - Last 24 Hours 11/26/17 11/26/17 11/26/17 11/26/17 03:10 05:59 08:44 08:44 Temp 97.1 Pulse 70 85 85 85 Resp 16 B/P (MAP) 122/71 (88) 116/77 (90) 116/77 116/77 Pulse Ox 96 95 O2 Delivery Room Air 11/26/17 11/26/17 11/26/17 11/26/17 08:48 09:00 13:15 13:58 Pulse 61 71 Resp 18 20 B/P (MAP) 110/60 (77) 100/57 (71) Pulse Ox 95 97 98 98 O2 Delivery Room Air Room Air 11/26/17 11/26/17 11/26/17 11/26/17 16:01 17:48 19:21 20:17 Temp 97.8 97.5 Pulse 64 82 82 Resp 20 16 B/P (MAP) 109/70 (83) 119/68 (85) 119/68 Pulse Ox 97 95 O2 Delivery Room Air Room Air 11/26/17 11/26/17 11/26/17 11/26/17 20:19 21:55 21:55 23:10 Temp 97.9 Pulse 78 Resp 16 18 26 B/P (MAP) 100/49 (66) 99/58 (72) Pulse Ox 95 O2 Delivery Room Air Room Air Room Air Intake and Output 11/26/17 11/26/17 11/27/17 15:00 23:00 07:00 Intake Total 240 ml 240 ml Balance 240 ml 240 ml ANIKA AGUILAR MD Nov 27, 2017 01:25
[2017-11-27 01:30] VITALS: BP 105/48
[2017-11-27 06:05] VITALS: BP 103/52
[2017-11-27] MEDS: METOPROLOL TART IMMED RELEASE 25 MG TABLET PO SCH ×2 (08:59→20:59)
[2017-11-27] MEDS: ASPIRIN ENTERIC COATED 81 MG TABLET.DR. PO SCH (09:00)
[2017-11-27] MEDS: FINASTERIDE 5 MG TABLET PO SCH (09:00)
[2017-11-27] MEDS: ALLOPURINOL 300 MG TABLET. PO SCH (09:00)
[2017-11-27] MEDS: SERTRALINE 25 MG TABLET. PO SCH (09:00)
[2017-11-27] MEDS: QUEtiapine 25 MG TABLET. PO SCH ×3 (09:00→16:38)
--- NOTE | 2017-11-27 09:48 | RAD ---
Exam: Pelvis and right hip radiograph 11/27/2017 Indication: Pelvis and right hip pain. Comparison: None available. Technique: AP view of the pelvis and single view of the right hip. Findings: There is retained oral contrast within the bowel. 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 Sacrum appears intact. Mild degenerative changes of the sacroiliac joints are noted. There is atherosclerotic vascular calcification. Superior and inferior pubic rami are intact. Pubic symphysis is intact. 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 No lucency is identified surrounding the hardware. There is moderate axial joint space narrowing involving the right hip joint. There is mild subcortical sclerosis. There is no acute fracture or dislocation of the right hip joint. Mineralization is within normal limits. Impression: No acute fracture or dislocation. 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
[2017-11-27] MEDS: LIDOCAINE (700MG/PATCH) PATCH. TD SCH (11:19)
[2017-11-27] MEDS ORDERED: CHOLECALCIFEROL (VITAMIN D3) 50,000 UNIT CAPSULE PO SCH (12:00)
--- NOTE | 2017-11-27 14:04 | PN ---
DATE: 11/25/2017 PSYCHIATRIC PROGRESS NOTE This late entry of 11/25/2017 covers elements not covered in my initial note of 11/25/2017. Met with the patient evening of 11/25/2017 and the patient was staffed at a treatment team meeting with the entire team morning of 11/25/2017. Reviewed the patient's history. He slept 4-3/4 hours previous evening. P.r.n.'s do not seem to be helping his agitation, mood lability. He remains quite confused, has received Zyprexa and Ativan and Tylenol. REVIEW OF SYSTEMS: Ambulation impaired, in Broda chair. No CV, , pulmonary, eye, ENT system symptoms on review. Reliability poor. MENTAL STATUS EXAMINATION: Oriented to himself. Insight, judgment, recent and remote memory, attention, concentration, fund of knowledge poor, consistent with his diagnosis mentioned in my initial note. IMPRESSION: Major neurocognitive disorder, Alzheimer, vascular with depression, delusion, behavioral disturbance. Rest unchanged. PLAN: Start trazodone 50 mg at bedtime p.r.n., march repeat x 1; Seroquel 12.5 mg 9 a.m., 1 p.m. and 5 p.m.; Zoloft 25 mg p.o. daily for his mood and anxiety symptoms and the Seroquel as a mood stabilizer, trazodone for insomnia. We will adjust further as clinically indicated. LORA WEST MD DR: LOVE/brian JOB#: [id number] / [id number]
[2017-11-27 15:53] VITALS: BP 118/63
[2017-11-27] MEDS: ACETAMINOPHEN 325 MG TABLET PO PRN (15:58)
[2017-11-27] MEDS: LORazepam 0.5 MG TABLET PO PRN (15:58)
[2017-11-27] MEDS: oxyCODONE/APAP 5/325 1 TAB TABLET PO PRN (18:01)
[2017-11-27] MEDS: fentaNYL 25MCG/HR 1 PATCH PATCH TD SCH (18:02)
--- NOTE | 2017-11-27 19:14 | PDOC ---
Exam Note: Margarito Note: Please also refer to the separate dictated note~for this date of service dictated separately.~Patient seen individually. Discussed the patient with Nursing staff reviewed the chart.~Reviewed interim history and current functioning. Reviewed vital signs,~Labs/ Radiology~and current medications noted below. Continue current treatment with the changes noted in the dictated addendum note Assessment: Vital Signs: Vital Signs Date Time Temp Pulse Resp B/P (MAP) Pulse Ox O2 Delivery O2 Flow Rate FiO2 11/27/17 18:02 18 96 11/27/17 18:01 Room Air 11/27/17 15:53 97.6 69 118/63 (81) I&O Intake and Output 11/27/17 06:59 Intake Total 480 ml Balance 480 ml Intake Oral 480 ml # Bowel Movements 2 Current Medications: Meds: Current Medications Lorazepam (Ativan) 1 mg 1X ONCE IM Last administered on 11/24/17 13:40; Start 11/24/17 at 13:45; Stop 11/24/17 at 13:46; Status DC Haloperidol Lactate (Haldol) 5 mg 1X ONCE IM Last administered on 11/24/17 14:00; Start 11/24/17 at 14:00; Stop 11/24/17 at 14:01; Status DC Lorazepam (Ativan) 1 mg 1X ONCE IM Last administered on 11/24/17 14:59; Start 11/24/17 at 15:00; Stop 11/24/17 at 15:02; Status DC Dextrose 1,000 ml @ 1,000 mls/hr 1X ONCE IV Last administered on 11/24/17 16:00; Start 11/24/17 at 16:00; Stop 11/24/17 at 17:05; Status DC Acetaminophen (Tylenol) 650 mg PRN Q6HRS PRN PO PAIN / TEMP Last administered on 11/27/17 15:58; Start 11/24/17 at 18:15 Multi-Ingredient Ointment (Analgesic [place]) 1 giovanna PRN QID PRN TP MUSCLE PAIN Last administered on 11/27/17 00:59; Start 11/24/17 at 18:15 Al Hydroxide/Mg Hydroxide (Mylanta Plus Xs) 15 ml PRN AFTMEALHC PRN PO DYSPEPSIA; Start 11/24/17 at 18:15 Magnesium Hydroxide (Milk Of Magnesia) 2,400 mg PRN QHS PRN PO CONSTIPATION; Start 11/24/17 at 18:15 Lorazepam (Ativan) 0.5 mg PRN Q6HRS PRN PO ANXIETY / AGITATION Last administered on 11/27/17 15:58; Start 11/24/17 at 19:00 Olanzapine (ZyPREXA ZYDIS) 2.5 mg PRN Q1HR PRN PO PSYCHOSIS Last administered on 11/25/17 04:15; Start 11/24/17 at 19:00 Allopurinol (Zyloprim) 300 mg DAILY PO Last administered on 11/27/17 09:00; Start 11/25/17 at 09:00 Aspirin (Aspirin Enteric Coated) 81 mg DAILY PO Last administered on 09:00; Start 11/25/17 at 09:00 Atorvastatin Calcium (Lipitor) 20 mg HS PO Last administered on 11/26/17 20: 17; Start 11/25/17 at 21:00 Diltiazem HCl (Cardizem 24hr Cd) 120 mg DAILY PO Last administered on 08:59; Start 11/25/17 at 09:00 Finasteride (Proscar) 5 mg DAILY PO Last administered on 11/27/17 09:00; Start 11/25/17 at 09:00 Acetaminophen/ Hydrocodone Bitart (Lortab 5/325) 1 tab QID PO Last administered on 11/26/17 20:19; Start 11/25/17 at 09:00; Stop 11/27/17 at 01 :18; Status DC Lidocaine/ Prilocaine (Emla) 1 giovanna BID TP Last administered on 11/26/17 20:19 ; Start 11/25/17 at 09:00; Stop 11/27/17 at 09:06; Status DC Metoprolol Tartrate (Lopressor) 12.5 mg BID PO Last administered on 11/25/17 09:08; Start 11/25/17 at 09:00; Stop 11/25/17 at 12:11; Status DC Ondansetron HCl (Zofran Odt) 4 mg PRN Q6HRS PRN PO NAUSEA; Start 11/25/17 at 05:45 Tamsulosin HCl (Flomax) 0.4 mg HS PO Last administered on 11/26/17 20:17; Start 11/25/17 at 21:00 Trazodone HCl (Desyrel) 50 mg QHS PO Last administered on 11/26/17 20:17; Start 11/25/17 at 21:00 Trazodone HCl (Desyrel) 50 mg PRN QHS PRN PO INSOMNIA Last administered on 00:55; Start 11/25/17 at 10:45 Sertraline HCl (Zoloft) 25 mg DAILY PO Last administered on 11/27/17 09:00; Start 11/26/17 at 09:00 Quetiapine Fumarate (SEROquel) 12.5 mg DAILY@0900,1300,1700 PO Last administered on 11/27/17 16:38; Start 11/25/17 at 13:00 Metoprolol Tartrate (Lopressor) 25 mg BID PO Last administered on 11/26/17 20 :17; Start 11/25/17 at 21:00 Oxycodone/ Acetaminophen (Percocet 5/325) 1 tab PRN Q6HRS PRN PO PAIN Last administered on 11/27/17 11:19; Start 11/27/17 at 01:15; Stop 11/27/17 at 17 :51; Status DC Lidocaine (Lidoderm) 1 patch DAILY TD Last administered on 11/27/17 11:19; Start 11/27/17 at 09:00 Vitamin D (Vitamin D3) 50,000 unit WEEKLY PO Last administered on 11/27/17 12 :33; Start 11/27/17 at 12:00 Ferrous Sulfate (Feosol) 325 mg DAILYWBKFT PO ; Start 11/28/17 at 08:00 Fentanyl (Duragesic 25mcg/ Hr) 1 patch Q3DAYS TD Last administered on 18:02; Start 11/27/17 at 18:30 Ascorbic Acid (Vitamin C) 500 mg BID PO ; Start 11/27/17 at 21:00 Multivitamins/ Calcium (Thera-M Plus) 1 tab DAILY PO ; Start 11/28/17 at 09:00 Oxycodone/ Acetaminophen (Percocet 5/325) 1 tab PRN Q4HRS PRN PO PAIN Last administered on 12/30/17at 18:01; Start 11/27/17 at 18:00 Active Scripts Active Reported Lorazepam 0.5 Mg Tablet 1 Tab PO PRN Q6HRS PRN 14 Days Atorvastatin Calcium 20 Mg Tablet 1 Tab PO HS Aspir-Low (Aspirin) 81 Mg Tablet.dr 1 Tab PO DAILY Diltiazem 24HR Cd (Diltiazem Hcl) 120 Mg Cap.er.24h 1 Cap PO DAILY Finasteride 5 Mg Tablet 1 Tab PO DAILY Hydrocodone-Apap 5-325 (Hydrocodone Bit/Acetaminophen) 1 Each Tablet 1 Tab PO QID Metoprolol Tartrate 25 Mg Tablet 12.5 Mg PO BID Ondansetron Odt (Ondansetron) 4 Mg Tab.rapdis 1 Tab PO PRN Q6-8HRS Percocet 5-325 Mg Tablet (Oxycodone Hcl/Acetaminophen) 1 Each Tablet 1 Tab PO PRN Q4HRS PRN Tamsulosin Hcl 0.4 Mg Cap.er.24h 1 Cap PO HS Zyloprim (Allopurinol) 300 Mg Tablet 300 Mg PO DAILY Lidocaine-Prilocaine Cream (Lidocaine/Prilocaine) 30 Gm Cream..g. 1 Giovanna TP BID I have reviewed the current psychotropics carefully including drug interactions. Risk benefit ratio favors no change other than as noted in my dictated progress note. Diagnosis: Problems: (1) Dementia with behavioral disturbance (2) Dementia in Alzheimer's disease with delusions (3) Dementia in Alzheimer's disease with depression (4) Dementia, vascular, with delusions (5) Dementia, vascular, with depression (6) Impulse control disorder (7) Anxiety disorder LORA WEST MD Nov 27, 2017 19:14
[2017-11-27] MEDS: TAMSULOSIN 0.4 MG CAP.ER.24H. PO SCH (20:48)
[2017-11-27] MEDS: ATORVASTATIN CALCIUM 20 MG TABLET PO SCH (20:48)
[2017-11-27] MEDS: traZODone 50 MG TABLET. PO SCH (20:48)
[2017-11-27] MEDS: ASCORBIC ACID 500 MG TABLET PO SCH (20:50)
[2017-11-27] MEDS: MIRTAZAPINE 7.5 MG TABLET. PO SCH (20:50)
[2017-11-28 04:05] VITALS: BP 127/75
[2017-11-28] MEDS: oxyCODONE/APAP 5/325 1 TAB TABLET PO PRN ×2 (04:05→13:20)
[2017-11-28 06:06] VITALS: BP 110/63
[2017-11-28] MEDS: METOPROLOL TART IMMED RELEASE 25 MG TABLET PO SCH ×2 (09:00→19:22)
[2017-11-28] MEDS: LIDOCAINE (700MG/PATCH) PATCH. TD SCH (09:16)
[2017-11-28] MEDS: FINASTERIDE 5 MG TABLET PO SCH (09:16)
[2017-11-28] MEDS: QUEtiapine 25 MG TABLET. PO SCH ×3 (09:19→17:06)
[2017-11-28] MEDS: ASPIRIN ENTERIC COATED 81 MG TABLET.DR. PO SCH (09:21)
[2017-11-28] MEDS: ALLOPURINOL 300 MG TABLET. PO SCH (09:21)
[2017-11-28] MEDS: ASCORBIC ACID 500 MG TABLET PO SCH ×2 (09:21→19:22)
[2017-11-28] MEDS: DULoxetine HCL 30 MG CAPSULE.DR PO SCH (09:26)
[2017-11-28] MEDS: MULTIVITAMIN with MINERAL TABLET. PO SCH (09:27)
[2017-11-28] MEDS: FERROUS SULFATE 325 MG TABLET. PO SCH (09:27)
--- NOTE | 2017-11-28 09:48 | PN ---
DATE: 11/26/2017 PSYCHIATRIC PROGRESS NOTE This is a late entry, date of service 11/26/2017, covers elements not covered in my initial note of 11/26/2017. SUBJECTIVE: I met with the patient the evening of 11/26/2017. Previous evening, he was somewhat drowsy, slept 6-3/4 hours, received trazodone at midnight since he woke up and was restless, asking for wanting to get out and not from his bed. REVIEW OF SYSTEMS: No CV, , pulmonary, eye, ENT system symptoms on review. Reliability poor. Gait unsteady, in wheelchair/Broda chair. MENTAL STATUS EXAM: Oriented to himself. Insight, judgment, recent and remote memory, attention, concentration, fund of knowledge poor, consistent with his diagnoses mentioned in my initial note. IMPRESSION: Major neurocognitive disorder, Alzheimer vascular with depression, delusion, behavioral disturbance. Rest unchanged. PLAN: Continue psychotropics mentioned in my initial note. Adjust further as clinically indicated. MAN Brayan WEST MD DR: LOVE/brian JOB#: [id number] / [id number]
[2017-11-28 15:56] VITALS: BP 92/51
[2017-11-28] MEDS: traZODone 50 MG TABLET. PO SCH (19:21)
[2017-11-28] MEDS: MIRTAZAPINE 7.5 MG TABLET. PO SCH (19:21)
[2017-11-28] MEDS: TAMSULOSIN 0.4 MG CAP.ER.24H. PO SCH (19:22)
[2017-11-28] MEDS: ATORVASTATIN CALCIUM 20 MG TABLET PO SCH (19:22)
[2017-11-28 19:28] VITALS: BP 115/70
--- NOTE | 2017-11-28 20:20 | PDOC ---
Exam Note: Margarito Note: Please also refer to the separate dictated note~for this date of service dictated separately.~Patient seen individually. Discussed the patient with Nursing staff reviewed the chart.~Reviewed interim history and current functioning. Reviewed vital signs,~Labs/ Radiology~and current medications noted below. Continue current treatment with the changes noted in the dictated addendum note Assessment: Vital Signs: Vital Signs Date Time Temp Pulse Resp B/P (MAP) Pulse Ox O2 Delivery O2 Flow Rate FiO2 11/28/17 19:28 97.5 64 18 115/70 (85) 94 Room Air I&O Intake and Output 11/28/17 07:00 Intake Total 480 ml Balance 480 ml Intake Oral 480 ml Current Medications: Meds: Current Medications Lorazepam (Ativan) 1 mg 1X ONCE IM Last administered on 11/24/17 13:40; Start 11/24/17 at 13:45; Stop 11/24/17 at 13:46; Status DC Haloperidol Lactate (Haldol) 5 mg 1X ONCE IM Last administered on 11/24/17 14:00; Start 11/24/17 at 14:00; Stop 11/24/17 at 14:01; Status DC Lorazepam (Ativan) 1 mg 1X ONCE IM Last administered on 11/24/17 14:59; Start 11/24/17 at 15:00; Stop 11/24/17 at 15:02; Status DC Dextrose 1,000 ml @ 1,000 mls/hr 1X ONCE IV Last administered on 11/24/17 16:00; Start 11/24/17 at 16:00; Stop 11/24/17 at 17:05; Status DC Acetaminophen (Tylenol) 650 mg PRN Q6HRS PRN PO PAIN / TEMP Last administered on 11/27/17 15:58; Start 11/24/17 at 18:15 Multi-Ingredient Ointment (Analgesic [place]) 1 giovanna PRN QID PRN TP MUSCLE PAIN Last administered on 11/27/17 00:59; Start 11/24/17 at 18:15 Al Hydroxide/Mg Hydroxide (Mylanta Plus Xs) 15 ml PRN AFTMEALHC PRN PO DYSPEPSIA; Start 11/24/17 at 18:15 Magnesium Hydroxide (Milk Of Magnesia) 2,400 mg PRN QHS PRN PO CONSTIPATION; Start 11/24/17 at 18:15 Lorazepam (Ativan) 0.5 mg PRN Q6HRS PRN PO ANXIETY / AGITATION Last administered on 11/27/17 15:58; Start 11/24/17 at 19:00 Olanzapine (ZyPREXA ZYDIS) 2.5 mg PRN Q1HR PRN PO PSYCHOSIS Last administered on 11/25/17 04:15; Start 11/24/17 at 19:00 Allopurinol (Zyloprim) 300 mg DAILY PO Last administered on 11/28/17 09:21; Start 11/25/17 at 09:00 Aspirin (Aspirin Enteric Coated) 81 mg DAILY PO Last administered on 09:21; Start 11/25/17 at 09:00 Atorvastatin Calcium (Lipitor) 20 mg HS PO Last administered on 11/28/17 19: 22; Start 11/25/17 at 21:00 Diltiazem HCl (Cardizem 24hr Cd) 120 mg DAILY PO Last administered on 09:22; Start 11/25/17 at 09:00 Finasteride (Proscar) 5 mg DAILY PO Last administered on 11/28/17 09:16; Start 11/25/17 at 09:00 Acetaminophen/ Hydrocodone Bitart (Lortab 5/325) 1 tab QID PO Last administered on 11/26/17 20:19; Start 11/25/17 at 09:00; Stop 11/27/17 at 01 :18; Status DC Lidocaine/ Prilocaine (Emla) 1 giovanna BID TP Last administered on 11/26/17 20:19 ; Start 11/25/17 at 09:00; Stop 11/27/17 at 09:06; Status DC Metoprolol Tartrate (Lopressor) 12.5 mg BID PO Last administered on 11/25/17 09:08; Start 11/25/17 at 09:00; Stop 11/25/17 at 12:11; Status DC Ondansetron HCl (Zofran Odt) 4 mg PRN Q6HRS PRN PO NAUSEA; Start 11/25/17 at 05:45 Tamsulosin HCl (Flomax) 0.4 mg HS PO Last administered on 11/28/17 19:22; Start 11/25/17 at 21:00 Trazodone HCl (Desyrel) 50 mg QHS PO Last administered on 11/28/17 19:21; Start 11/25/17 at 21:00 Trazodone HCl (Desyrel) 50 mg PRN QHS PRN PO INSOMNIA Last administered on 22:36; Start 11/25/17 at 10:45 Sertraline HCl (Zoloft) 25 mg DAILY PO Last administered on 11/27/17 09:00; Start 11/26/17 at 09:00; Stop 11/27/17 at 19:15; Status DC Quetiapine Fumarate (SEROquel) 12.5 mg DAILY@0900,1300,1700 PO Last administered on 11/28/17 17:06; Start 11/25/17 at 13:00 Metoprolol Tartrate (Lopressor) 25 mg BID PO Last administered on 11/27/17 20 :59; Start 11/25/17 at 21:00 Oxycodone/ Acetaminophen (Percocet 5/325) 1 tab PRN Q6HRS PRN PO PAIN Last administered on 11/27/17 11:19; Start 11/27/17 at 01:15; Stop 11/27/17 at 17 :51; Status DC Lidocaine (Lidoderm) 1 patch DAILY TD Last administered on 11/28/17 09:16; Start 11/27/17 at 09:00 Vitamin D (Vitamin D3) 50,000 unit WEEKLY PO Last administered on 11/27/17 12 :33; Start 11/27/17 at 12:00 Ferrous Sulfate (Feosol) 325 mg DAILYWBKFT PO Last administered on 11/28/17 09:27; Start 11/28/17 at 08:00 Fentanyl (Duragesic 25mcg/ Hr) 1 patch Q3DAYS TD Last administered on 18:02; Start 11/27/17 at 18:30 Ascorbic Acid (Vitamin C) 500 mg BID PO Last administered on 11/28/17 19:22; Start 11/27/17 at 21:00 Multivitamins/ Calcium (Thera-M Plus) 1 tab DAILY PO Last administered on 11/28 09:27; Start 11/28/17 at 09:00 Oxycodone/ Acetaminophen (Percocet 5/325) 1 tab PRN Q4HRS PRN PO PAIN Last administered on 11/28/17 13:20; Start 11/27/17 at 18:00 Duloxetine HCl (Cymbalta) 30 mg DAILY PO Last administered on 11/28/17 09:26 ; Start 11/28/17 at 09:00 Mirtazapine (Remeron) 7.5 mg QHS PO Last administered on 11/28/17 19:21; Start 11/27/17 at 21:00 Active Scripts Active Reported Lorazepam 0.5 Mg Tablet 1 Tab PO PRN Q6HRS PRN 14 Days Atorvastatin Calcium 20 Mg Tablet 1 Tab PO HS Aspir-Low (Aspirin) 81 Mg Tablet.dr 1 Tab PO DAILY Diltiazem 24HR Cd (Diltiazem Hcl) 120 Mg Cap.er.24h 1 Cap PO DAILY Finasteride 5 Mg Tablet 1 Tab PO DAILY Hydrocodone-Apap 5-325 (Hydrocodone Bit/Acetaminophen) 1 Each Tablet 1 Tab PO QID Metoprolol Tartrate 25 Mg Tablet 12.5 Mg PO BID Ondansetron Odt (Ondansetron) 4 Mg Tab.rapdis 1 Tab PO PRN Q6-8HRS Percocet 5-325 Mg Tablet (Oxycodone Hcl/Acetaminophen) 1 Each Tablet 1 Tab PO PRN Q4HRS PRN Tamsulosin Hcl 0.4 Mg Cap.er.24h 1 Cap PO HS Zyloprim (Allopurinol) 300 Mg Tablet 300 Mg PO DAILY Lidocaine-Prilocaine Cream (Lidocaine/Prilocaine) 30 Gm Cream..g. 1 Giovanna TP BID I have reviewed the current psychotropics carefully including drug interactions. Risk benefit ratio favors no change other than as noted in my dictated progress note. Diagnosis: Problems: (1) Dementia with behavioral disturbance (2) Dementia in Alzheimer's disease with delusions (3) Dementia in Alzheimer's disease with depression (4) Dementia, vascular, with delusions (5) Dementia, vascular, with depression (6) Impulse control disorder (7) Anxiety disorder LORA WEST MD Nov 28, 2017 20:20
[2017-11-28] MEDS ORDERED: MELATONIN 3 MG TABLET PO PRN (20:30)
[2017-11-29 06:10] VITALS: BP 99/47
[2017-11-29] MEDS: oxyCODONE/APAP 5/325 1 TAB TABLET PO PRN (06:24)
[2017-11-29 06:49] LABS: BASO % 0 % (0-3); EOS # 0.1 x10^3/uL (0.0-0.7); EOS % 1 % (0-3); HEMATOCRIT 32.4 % (39.0-53.0); HEMOGLOBIN 10.2 g/dL (13.0-17.5); LYMPH # 0.8 x10^3/uL (1.0-4.8); LYMPH % 6 % (24-48); MEAN CORPUSCULAR HEMOGLOBIN 28 pg (25-35); MEAN CORPUSCULAR HGB CONC 32 g/dL (31-37); MEAN CORPUSCULAR VOLUME 90 fL (79-100); MONO # 0.7 x10^3/uL (0.0-1.1); MONO % 5 % (0-9); NEUT # 12.5 x10^3uL (1.8-7.7); NEUT % 88 % (31-73); PLATELET COUNT 294 x10^3/uL (140-400); RED CELL DISTRIBUTION WIDTH 18.5 % (11.5-14.5); WHITE BLOOD COUNT 14.2 x10^3/uL (4.0-11.0)
[2017-11-29 07:05] LABS: ALBUMIN 2.4 g/dL (3.4-5.0); ALBUMIN/GLOBULIN RATIO 0.6 (1.0-1.7); CALCIUM 9.3 mg/dL (8.5-10.1); CREATININE 2.1 mg/dL (0.7-1.3); POTASSIUM 4.2 mmol/L (3.5-5.1); TOTAL BILIRUBIN 0.4 mg/dL (0.2-1.0); TOTAL PROTEIN 6.5 g/dL (6.4-8.2)
[2017-11-29] MEDS: DULoxetine HCL 30 MG CAPSULE.DR PO SCH (07:50)
[2017-11-29] MEDS: LIDOCAINE (700MG/PATCH) PATCH. TD SCH (07:50)
[2017-11-29] MEDS: ASCORBIC ACID 500 MG TABLET PO SCH ×2 (07:50→20:14)
[2017-11-29] MEDS: ASPIRIN ENTERIC COATED 81 MG TABLET.DR. PO SCH (07:51)
[2017-11-29] MEDS: ALLOPURINOL 300 MG TABLET. PO SCH (07:51)
[2017-11-29] MEDS: QUEtiapine 25 MG TABLET. PO SCH ×3 (07:51→16:37)
[2017-11-29] MEDS: MULTIVITAMIN with MINERAL TABLET. PO SCH (07:52)
[2017-11-29] MEDS: FINASTERIDE 5 MG TABLET PO SCH (07:52)
[2017-11-29] MEDS: METOPROLOL TART IMMED RELEASE 25 MG TABLET PO SCH ×2 (07:53→20:14)
[2017-11-29] MEDS: FERROUS SULFATE 325 MG TABLET. PO SCH (07:56)
--- NOTE | 2017-11-29 09:26 | PN ---
DATE: 11/27/2017 PSYCHIATRIC PROGRESS NOTE This is a late entry 11/27/2017, covers elements not covered in my initial note 11/27/2017. SUBJECTIVE: I met with the patient the evening of 11/27/2017. The patient had a difficult day, slept just 2 hours previous evening consequent to pain. He has been started on fentanyl patch, Percocet changed from every 6 hours p.r.n. to every [address] Carerno. Pain from his hip and x-ray shows osteoarthritis. He took some Lortab, Ativan, which seemed to help. REVIEW OF SYSTEMS: Ambulation impaired, in bed. No CV, , pulmonary, eye system symptoms on review. Reliability poor. MENTAL STATUS EXAM: Oriented to himself. Insight, judgment, recent and remote memory, attention, concentration, fund of knowledge poor, consistent with his diagnoses mentioned in my initial note. IMPRESSION: Major neurocognitive disorder, Alzheimer, vascular with depression, delusion, behavioral disturbance. Rest unchanged. PLAN: Changing Zoloft to Cymbalta 30 mg a day, which should help his pain as well in addition to the mood, anxiety symptoms. Start Remeron 7.5 mg at bedtime to help with mood, anxiety, insomnia. Adjust further as clinically indicated. MAN Brayan WEST MD DR: LOVE/brian JOB#: [id number] / [id number]
[2017-11-29] MEDS: MORPHINE SULFATE 20 MG/ML CONC SOLUTION. SL PRN ×3 (10:09→14:05)
[2017-11-29] MEDS ORDERED: IV DEXTROSE 5% 1,000 ML IV SCH (12:15)
[2017-11-29] MEDS: IV DEXTROSE 5% 1,000 ML IV SCH ×2 (13:00→20:21)
[2017-11-29 16:03] VITALS: BP 115/72
--- NOTE | 2017-11-29 19:59 | PDOC ---
Exam Note: Margarito Note: Please also refer to the separate dictated note~for this date of service dictated separately.~Patient seen individually. Discussed the patient with Nursing staff reviewed the chart.~Reviewed interim history and current functioning. Reviewed vital signs,~Labs/ Radiology~and current medications noted below. Continue current treatment with the changes noted in the dictated addendum note Assessment: Vital Signs: Vital Signs Date Time Temp Pulse Resp B/P (MAP) Pulse Ox O2 Delivery O2 Flow Rate FiO2 11/29/17 16:03 97.9 95 18 115/72 (86) 96 11/29/17 06:10 Room Air I&O Intake and Output 11/29/17 07:00 Intake Total 600 ml Balance 600 ml Intake Oral 600 ml Labs: Laboratory Tests Test 11/29/17 06:25 White Blood Count 14.2 x10^3/uL (4.0-11.0) #H Red Blood Count 3.60 x10^6/uL (4.30-5.70) L Hemoglobin 10.2 g/dL (13.0-17.5) L Hematocrit 32.4 % (39.0-53.0) L Mean Corpuscular Volume 90 fL (79-100) Mean Corpuscular Hemoglobin 28 pg (25-35) Mean Corpuscular Hemoglobin Concent 32 g/dL (31-37) Red Cell Distribution Width 18.5 % (11.5-14.5) H Platelet Count 294 x10^3/uL (140-400) Neutrophils (%) (Auto) 88 % (31-73) H Lymphocytes (%) (Auto) 6 % (24-48) L Monocytes (%) (Auto) 5 % (0-9) Eosinophils (%) (Auto) 1 % (0-3) Basophils (%) (Auto) 0 % (0-3) Neutrophils # (Auto) 12.5 x10^3uL (1.8-7.7) H Lymphocytes # (Auto) 0.8 x10^3/uL (1.0-4.8) L Monocytes # (Auto) 0.7 x10^3/uL (0.0-1.1) Eosinophils # (Auto) 0.1 x10^3/uL (0.0-0.7) Basophils # (Auto) 0.0 x10^3/uL (0.0-0.2) Sodium Level 155 mmol/L (136-145) H Potassium Level 4.2 mmol/L (3.5-5.1) Chloride Level 122 mmol/L (98-107) H Carbon Dioxide Level 25 mmol/L (21-32) Anion Gap 8 (6-14) Blood Urea Nitrogen 36 mg/dL (8-26) H Creatinine 2.1 mg/dL (0.7-1.3) H Estimated GFR (Cockcroft-Gault) 30.0 BUN/Creatinine Ratio 17 (6-20) Glucose Level 105 mg/dL (70-99) H Calcium Level 9.3 mg/dL (8.5-10.1) Magnesium Level 2.6 mg/dL (1.8-2.4) H Total Bilirubin 0.4 mg/dL (0.2-1.0) Aspartate Amino Transferase (AST) 20 U/L (15-37) Alanine Aminotransferase (ALT) 17 U/L (16-63) Alkaline Phosphatase 113 U/L (46-116) Total Protein 6.5 g/dL (6.4-8.2) Albumin 2.4 g/dL (3.4-5.0) L Albumin/Globulin Ratio 0.6 (1.0-1.7) L Current Medications: Meds: Current Medications Lorazepam (Ativan) 1 mg 1X ONCE IM Last administered on 11/24/17 13:40; Start 11/24/17 at 13:45; Stop 11/24/17 at 13:46; Status DC Haloperidol Lactate (Haldol) 5 mg 1X ONCE IM Last administered on 11/24/17 14:00; Start 11/24/17 at 14:00; Stop 11/24/17 at 14:01; Status DC Lorazepam (Ativan) 1 mg 1X ONCE IM Last administered on 11/24/17 14:59; Start 11/24/17 at 15:00; Stop 11/24/17 at 15:02; Status DC Dextrose 1,000 ml @ 1,000 mls/hr 1X ONCE IV Last administered on 11/24/17 16:00; Start 11/24/17 at 16:00; Stop 11/24/17 at 17:05; Status DC Acetaminophen (Tylenol) 650 mg PRN Q6HRS PRN PO PAIN / TEMP Last administered on 11/27/17 15:58; Start 11/24/17 at 18:15 Multi-Ingredient Ointment (Analgesic [place]) 1 giovanna PRN QID PRN TP MUSCLE PAIN Last administered on 11/27/17 00:59; Start 11/24/17 at 18:15 Al Hydroxide/Mg Hydroxide (Mylanta Plus Xs) 15 ml PRN AFTMEALHC PRN PO DYSPEPSIA; Start 11/24/17 at 18:15 Magnesium Hydroxide (Milk Of Magnesia) 2,400 mg PRN QHS PRN PO CONSTIPATION; Start 11/24/17 at 18:15 Lorazepam (Ativan) 0.5 mg PRN Q6HRS PRN PO ANXIETY / AGITATION Last administered on 11/27/17 15:58; Start 11/24/17 at 19:00 Olanzapine (ZyPREXA ZYDIS) 2.5 mg PRN Q1HR PRN PO PSYCHOSIS Last administered on 11/25/17 04:15; Start 11/24/17 at 19:00 Allopurinol (Zyloprim) 300 mg DAILY PO Last administered on 11/29/17 07:51; Start 11/25/17 at 09:00 Aspirin (Aspirin Enteric Coated) 81 mg DAILY PO Last administered on 11/29/17 07:51; Start 11/25/17 at 09:00 Atorvastatin Calcium (Lipitor) 20 mg HS PO Last administered on 11/28/17 19: 22; Start 11/25/17 at 21:00 Diltiazem HCl (Cardizem 24hr Cd) 120 mg DAILY PO Last administered on 09:22; Start 11/25/17 at 09:00 Finasteride (Proscar) 5 mg DAILY PO Last administered on 11/29/17 07:52; Start 11/25/17 at 09:00 Acetaminophen/ Hydrocodone Bitart (Lortab 5/325) 1 tab QID PO Last administered on 11/26/17 20:19; Start 11/25/17 at 09:00; Stop 11/27/17 at 01 :18; Status DC Lidocaine/ Prilocaine (Emla) 1 giovanna BID TP Last administered on 11/26/17 20:19 ; Start 11/25/17 at 09:00; Stop 11/27/17 at 09:06; Status DC Metoprolol Tartrate (Lopressor) 12.5 mg BID PO Last administered on 11/25/17 09:08; Start 11/25/17 at 09:00; Stop 11/25/17 at 12:11; Status DC Ondansetron HCl (Zofran Odt) 4 mg PRN Q6HRS PRN PO NAUSEA; Start 11/25/17 at 05:45 Tamsulosin HCl (Flomax) 0.4 mg HS PO Last administered on 11/28/17 19:22; Start 11/25/17 at 21:00 Trazodone HCl (Desyrel) 50 mg QHS PO Last administered on 11/28/17 19:21; Start 11/25/17 at 21:00 Trazodone HCl (Desyrel) 50 mg PRN QHS PRN PO INSOMNIA Last administered on 22:36; Start 11/25/17 at 10:45 Sertraline HCl (Zoloft) 25 mg DAILY PO Last administered on 11/27/17 09:00; Start 11/26/17 at 09:00; Stop 11/27/17 at 19:15; Status DC Quetiapine Fumarate (SEROquel) 12.5 mg DAILY@0900,1300,1700 PO Last administered on 11/29/17 16:37; Start 11/25/17 at 13:00 Metoprolol Tartrate (Lopressor) 25 mg BID PO Last administered on 11/27/17 20 :59; Start 11/25/17 at 21:00 Oxycodone/ Acetaminophen (Percocet 5/325) 1 tab PRN Q6HRS PRN PO PAIN Last administered on 11/27/17 11:19; Start 11/27/17 at 01:15; Stop 11/27/17 at 17 :51; Status DC Lidocaine (Lidoderm) 1 patch DAILY TD Last administered on 11/29/17 07:50; Start 11/27/17 at 09:00 Vitamin D (Vitamin D3) 50,000 unit WEEKLY PO Last administered on 11/27/17 12 :33; Start 11/27/17 at 12:00 Ferrous Sulfate (Feosol) 325 mg DAILYWBKFT PO Last administered on 11/29/17 07: 56; Start 11/28/17 at 08:00 Fentanyl (Duragesic 25mcg/ Hr) 1 patch Q3DAYS TD Last administered on 18:02; Start 11/27/17 at 18:30 Ascorbic Acid (Vitamin C) 500 mg BID PO Last administered on 11/29/17 07:50; Start 11/27/17 at 21:00 Multivitamins/ Calcium (Thera-M Plus) 1 tab DAILY PO Last administered on 07:52; Start 11/28/17 at 09:00 Oxycodone/ Acetaminophen (Percocet 5/325) 1 tab PRN Q4HRS PRN PO PAIN Last administered on 11/29/17 06:24; Start 11/27/17 at 18:00 Duloxetine HCl (Cymbalta) 30 mg DAILY PO Last administered on 11/29/17 07:50; Start 11/28/17 at 09:00 Mirtazapine (Remeron) 7.5 mg QHS PO Last administered on 11/28/17 19:21; Start 11/27/17 at 21:00 Melatonin 3 mg PRN QHS PRN PO INSOMNIA; Start 11/28/17 at 20:30 Morphine Sulfate (Roxanol Conc) 10 mg PRN Q3HRS PRN SL PAIN Last administered on 11/29/17 14:05; Start 11/29/17 at 10:00 Dextrose 1,000 ml @ 125 mls/hr Q8H IV ; Start 11/29/17 at 12:15; Stop 11/29/17 at 13:00; Status DC Dextrose 1,000 ml @ 125 mls/hr Q8H IV Last administered on 11/29/17 13:00; Start 11/29/17 at 13:00 Active Scripts Active Reported Lorazepam 0.5 Mg Tablet 1 Tab PO PRN Q6HRS PRN 14 Days Atorvastatin Calcium 20 Mg Tablet 1 Tab PO HS Aspir-Low (Aspirin) 81 Mg Tablet.dr 1 Tab PO DAILY Diltiazem 24HR Cd (Diltiazem Hcl) 120 Mg Cap.er.24h 1 Cap PO DAILY Finasteride 5 Mg Tablet 1 Tab PO DAILY Hydrocodone-Apap 5-325 (Hydrocodone Bit/Acetaminophen) 1 Each Tablet 1 Tab PO QID Metoprolol Tartrate 25 Mg Tablet 12.5 Mg PO BID Ondansetron Odt (Ondansetron) 4 Mg Tab.rapdis 1 Tab PO PRN Q6-8HRS Percocet 5-325 Mg Tablet (Oxycodone Hcl/Acetaminophen) 1 Each Tablet 1 Tab PO PRN Q4HRS PRN Tamsulosin Hcl 0.4 Mg Cap.er.24h 1 Cap PO HS Zyloprim (Allopurinol) 300 Mg Tablet 300 Mg PO DAILY Lidocaine-Prilocaine Cream (Lidocaine/Prilocaine) 30 Gm Cream..g. 1 Giovanna TP BID I have reviewed the current psychotropics carefully including drug interactions. Risk benefit ratio favors no change other than as noted in my dictated progress note. Diagnosis: Problems: (1) Anxiety disorder (2) Impulse control disorder (3) Dementia, vascular, with depression (4) Dementia, vascular, with delusions (5) Dementia in Alzheimer's disease with depression (6) Dementia in Alzheimer's disease with delusions (7) Dementia with behavioral disturbance (8) Hypernatremia (9) Acute renal insufficiency (10) Troponin I above reference range LORA WEST MD Nov 29, 2017 19:59
[2017-11-29] MEDS: TAMSULOSIN 0.4 MG CAP.ER.24H. PO SCH (20:14)
[2017-11-29] MEDS: ATORVASTATIN CALCIUM 20 MG TABLET PO SCH (20:14)
[2017-11-29] MEDS: traZODone 50 MG TABLET. PO SCH (20:14)
[2017-11-29] MEDS: MIRTAZAPINE 7.5 MG TABLET. PO SCH (20:14)
--- NOTE | 2017-11-30 00:18 | PN ---
DATE: 11/29/2017 SUBJECTIVE: Nursing staff has asked me to see this 87-year-old gentleman, who was [facility]2017 for various behaviors at the nursing facility. The patient has appeared to be in severe pain since admission and has been pointing to his hip. He has not fallen, but x-rays do show moderate degenerative disease of the spine and moderate joint space narrowing of the right hip without acute fracture or dislocation. He has not been eating and drinking and is now dehydrated and hypernatremic. Also, he has been started on fentanyl patch and is getting Percocet for pain. Still does not feel very well. Family has been contacted about possible hospice and seems they are in agreement. OBJECTIVE: VITAL SIGNS: Blood pressure is 99/47, pulse 72, temperature 97.2, pulse ox 94% on room air. GENERAL: The patient was seen in his room. He is lying in his bed. He is awake and yelling out pointing on his hip. The right and left hip were both examined. 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 Hips were palpated without appreciable pain, but just to move to try to flex the hip a little bit does give him pain on the right in particular. He was rolled over and his back was examined. He also have coccygeal wound, which is covered, but there was no acute pain on his back. HEENT: His tongue is dry. LUNGS: Clear. CARDIOVASCULAR: Regular rhythm and rate. LABORATORY DATA: His sodium was 155. BUN is 36, creatinine 2.1. CBC, his white cell count is up to 14.2. ASSESSMENT: 1. General debilitation in this 87-year-old. 2. Hypernatremia secondary to dehydration. 3. Acute kidney injury secondary to dehydration. 4. Leukocytosis, probably inflammatory with no evidence of infection. 5. Continued bilateral hip pain without history of fall with no fracture on x-rays. PLAN: He has been started on a fentanyl patch. We started him on some Roxanol. Recommend hospice. We will give him some IV fluid with D5W and see how he feels tomorrow. EDINSON MOTA DO DR: ELHAM/brian JOB#: [id number] / [id number]
[2017-11-30] MEDS: IV DEXTROSE 5% 1,000 ML IV SCH (04:29)
[2017-11-30 06:00] VITALS: BP 110/73
[2017-11-30 07:49] LABS: BASO % 0 % (0-3); EOS # 0.1 x10^3/uL (0.0-0.7); EOS % 1 % (0-3); HEMATOCRIT 26.3 % (39.0-53.0); HEMOGLOBIN 8.5 g/dL (13.0-17.5); LYMPH # 0.5 x10^3/uL (1.0-4.8); LYMPH % 6 % (24-48); MEAN CORPUSCULAR HEMOGLOBIN 29 pg (25-35); MEAN CORPUSCULAR HGB CONC 32 g/dL (31-37); MEAN CORPUSCULAR VOLUME 89 fL (79-100); MONO # 0.5 x10^3/uL (0.0-1.1); MONO % 6 % (0-9); NEUT # 6.9 x10^3uL (1.8-7.7); NEUT % 87 % (31-73); PLATELET COUNT 231 x10^3/uL (140-400); RED BLOOD COUNT 2.95 x10^6/uL (4.30-5.70); RED CELL DISTRIBUTION WIDTH 18.5 % (11.5-14.5)
[2017-11-30] MEDS: FERROUS SULFATE 325 MG TABLET. PO SCH ×2 (08:00→11:41)
[2017-11-30 08:04] LABS: ALBUMIN 2.1 g/dL (3.4-5.0); ALBUMIN/GLOBULIN RATIO 0.6 (1.0-1.7); CALCIUM 8.3 mg/dL (8.5-10.1); GFR 31.7; POTASSIUM 3.5 mmol/L (3.5-5.1); TOTAL BILIRUBIN 0.4 mg/dL (0.2-1.0); TOTAL PROTEIN 5.7 g/dL (6.4-8.2)
[2017-11-30] MEDS: MULTIVITAMIN with MINERAL TABLET. PO SCH ×2 (09:00→11:43)
[2017-11-30] MEDS: METOPROLOL TART IMMED RELEASE 25 MG TABLET PO SCH ×2 (09:00→11:43)
[2017-11-30] MEDS: QUEtiapine 25 MG TABLET. PO SCH ×3 (09:00→13:36)
[2017-11-30] MEDS: FINASTERIDE 5 MG TABLET PO SCH ×2 (09:00→11:41)
[2017-11-30] MEDS: ASPIRIN ENTERIC COATED 81 MG TABLET.DR. PO SCH ×2 (09:00→11:43)
[2017-11-30] MEDS: DULoxetine HCL 30 MG CAPSULE.DR PO SCH ×2 (09:00→11:41)
[2017-11-30] MEDS: ASCORBIC ACID 500 MG TABLET PO SCH ×2 (09:00→11:41)
[2017-11-30] MEDS: ALLOPURINOL 300 MG TABLET. PO SCH ×2 (09:00→11:41)
[2017-11-30 10:23] LABS: % BANDS 2 % (0-9); % LYMPHS 8 % (24-48); % MONOS 2 % (0-10); % SEGS 88 % (35-66); NUCLEATED RBC 2
[2017-11-30 10:24] LABS: ANISOCYTOSIS SLIGHT; MICROCYTOSIS SLIGHT; OVALOCYTES OCC; PLATELET CLUMP PRESENT; PLT ESTIMATE ADEQUATE (ADEQUATE); POLYCHROMASIA SLIGHT; SCHISTOCYTES OCC
[2017-11-30] MEDS: LIDOCAINE (700MG/PATCH) PATCH. TD SCH ×2 (11:44→13:36)
[2017-11-30] MEDS ORDERED: ACET325T9 PO (13:05)
[2017-11-30] MEDS ORDERED: ASCO500C9 PO (13:08)
[2017-11-30] MEDS ORDERED: CHOL500016 PO (13:12)
[2017-11-30] MEDS ORDERED: DULO30CA2 PO (13:20)
[2017-11-30] MEDS ORDERED: FERR325T72 PO (13:21)
[2017-11-30] MEDS ORDERED: [UNRECOGNIZED DRUG - CODE] IV (13:25)
[2017-11-30] MEDS ORDERED: LORA0.5T PO (13:27)
[2017-11-30] MEDS ORDERED: LIDO700A39 TP (13:30)
[2017-11-30] MEDS ORDERED: MAG30ORA2 PO (13:31)
[2017-11-30] MEDS ORDERED: MAGN2400 PO (13:33)
[2017-11-30] MEDS ORDERED: METH29OI TP (13:35)
[2017-11-30] MEDS: fentaNYL 25MCG/HR 1 PATCH PATCH TD SCH (13:36)
[2017-11-30] MEDS ORDERED: MIRT7.5T8 PO (13:37)
[2017-11-30] MEDS ORDERED: MORP10SY2 IV (13:38)
[2017-11-30] MEDS ORDERED: MULT-638 PO (13:41)
[2017-11-30] MEDS ORDERED: OLAN2.5T3 PO (13:42)
[2017-11-30] MEDS ORDERED: QUET25TA5 PO (13:43)
[2017-11-30] MEDS ORDERED: FENT1PAT90 TD (13:45)
[2017-11-30] MEDS ORDERED: TRAZ50TA15 PO ×2 (13:46→13:47)
[2017-11-30] MEDS ORDERED: MELA3TAB2 PO (13:53)
[2017-11-30] MEDS ORDERED: METHYL SALICYLATE/MENTHOL TOPICAL OINTMENT 29GM TUBE. TP PRN (14:45)
[2017-11-30] MEDS ORDERED: OLANZapine 2.5 MG TABLET PO PRN (14:45)
[2017-11-30] MEDS ORDERED: ACETAMINOPHEN 325 MG TABLET PO PRN (14:45)
[2017-11-30] MEDS ORDERED: MAG HYDROX/AL HYDROX/SIMETH 30 ML ORAL.SUSP PO PRN (14:45)
[2017-11-30] MEDS ORDERED: traZODone 50 MG TABLET. PO PRN (14:45)
[2017-11-30 15:25] LABS: HEMATOCRIT 30.4 % (39.0-53.0); HEMOGLOBIN 9.6 g/dL (13.0-17.5); RED BLOOD COUNT 3.41 x10^6/uL (4.30-5.70); RED CELL DISTRIBUTION WIDTH 18.5 % (11.5-14.5); WHITE BLOOD COUNT 9.6 x10^3/uL (4.0-11.0)
--- NOTE | 2017-11-30 18:17 | PDOC ---
Exam Note: Margarito Note: Please also refer to the separate dictated note~for this date of service dictated separately.~Patient seen individually. Discussed the patient with Nursing staff reviewed the chart.~Reviewed interim history and current functioning. Reviewed vital signs,~Labs/ Radiology~and current medications noted below. Continue current treatment with the changes noted in the dictated addendum note Assessment: Vital Signs: Vital Signs Date Time Temp Pulse Resp B/P (MAP) Pulse Ox O2 Delivery O2 Flow Rate FiO2 11/30/17 06:00 98.1 63 20 110/73 (85) 89 11/29/17 06:10 Room Air I&O Intake and Output 11/30/17 07:00 Intake Total 1360 ml Balance 1360 ml Intake Oral 360 ml IV Total 1000 ml Labs: Laboratory Tests Test 11/30/17 07:38 11/30/17 15:15 White Blood Count 8.0 x10^3/uL (4.0-11.0) 9.6 x10^3/uL (4.0-11.0) Red Blood Count 2.95 x10^6/uL (4.30-5.70) L 3.41 x10^6/uL (4.30-5.70) L Hemoglobin 8.5 g/dL (13.0-17.5) L 9.6 g/dL (13.0-17.5) L Hematocrit 26.3 % (39.0-53.0) L 30.4 % (39.0-53.0) L Mean Corpuscular Volume 89 fL (79-100) 89 fL (79-100) Mean Corpuscular Hemoglobin 29 pg (25-35) 28 pg (25-35) Mean Corpuscular Hemoglobin Concent 32 g/dL (31-37) 32 g/dL (31-37) Red Cell Distribution Width 18.5 % (11.5-14.5) H 18.5 % (11.5-14.5) H Platelet Count 231 x10^3/uL (140-400) 245 x10^3/uL (140-400) Neutrophils (%) (Auto) 87 % (31-73) H Lymphocytes (%) (Auto) 6 % (24-48) L Monocytes (%) (Auto) 6 % (0-9) Eosinophils (%) (Auto) 1 % (0-3) Basophils (%) (Auto) 0 % (0-3) Neutrophils # (Auto) 6.9 x10^3uL (1.8-7.7) Lymphocytes # (Auto) 0.5 x10^3/uL (1.0-4.8) L Monocytes # (Auto) 0.5 x10^3/uL (0.0-1.1) Eosinophils # (Auto) 0.1 x10^3/uL (0.0-0.7) Basophils # (Auto) 0.0 x10^3/uL (0.0-0.2) Segmented Neutrophils % 88 % (35-66) H Band Neutrophils % 2 % (0-9) Lymphocytes % 8 % (24-48) L Monocytes % 2 % (0-10) Nucleated Red Blood Cells 2 Platelet Estimate Adequate (ADEQUATE) Platelet Clumps, EDTA Present Polychromasia Slight Basophilic Stippling Present Anisocytosis Slight Microcytosis Slight Ovalocytes Occ Schistocytes Occ Sodium Level 150 mmol/L (136-145) H Potassium Level 3.5 mmol/L (3.5-5.1) Chloride Level 118 mmol/L (98-107) H Carbon Dioxide Level 24 mmol/L (21-32) Anion Gap 8 (6-14) Blood Urea Nitrogen 32 mg/dL (8-26) H Creatinine 2.0 mg/dL (0.7-1.3) H Estimated GFR (Cockcroft-Gault) 31.7 BUN/Creatinine Ratio 16 (6-20) Glucose Level 96 mg/dL (70-99) Calcium Level 8.3 mg/dL (8.5-10.1) L Magnesium Level 2.4 mg/dL (1.8-2.4) Total Bilirubin 0.4 mg/dL (0.2-1.0) Aspartate Amino Transferase (AST) 25 U/L (15-37) Alanine Aminotransferase (ALT) 18 U/L (16-63) Alkaline Phosphatase 89 U/L (46-116) Total Protein 5.7 g/dL (6.4-8.2) L Albumin 2.1 g/dL (3.4-5.0) L Albumin/Globulin Ratio 0.6 (1.0-1.7) L Current Medications: Meds: Current Medications Lorazepam (Ativan) 1 mg 1X ONCE IM Last administered on 12/27/17at 13:40; Start 11/24/17 at 13:45; Stop 11/24/17 at 13:46; Status DC Haloperidol Lactate (Haldol) 5 mg 1X ONCE IM Last administered on 11/24/17 14:00; Start 11/24/17 at 14:00; Stop 11/24/17 at 14:01; Status DC Lorazepam (Ativan) 1 mg 1X ONCE IM Last administered on 11/24/17 14:59; Start 11/24/17 at 15:00; Stop 11/24/17 at 15:02; Status DC Dextrose 1,000 ml @ 1,000 mls/hr 1X ONCE IV Last administered on 11/24/17 16:00; Start 11/24/17 at 16:00; Stop 11/24/17 at 17:05; Status DC Acetaminophen (Tylenol) 650 mg PRN Q6HRS PRN PO PAIN / TEMP Last administered on 11/27/17 15:58; Start 11/24/17 at 18:15; Stop 11/30/17 at 13:58; Status DC Multi-Ingredient Ointment (Analgesic [place]) 1 alba PRN QID PRN TP MUSCLE PAIN Last administered on 11/27/17 00:59; Start 11/24/17 at 18:15; Stop 11/30/17 at 13:58; Status DC Al Hydroxide/Mg Hydroxide (Mylanta Plus Xs) 15 ml PRN AFTMEALHC PRN PO DYSPEPSIA; Start 11/24/17 at 18:15; Stop 11/30/17 at 13:58; Status DC Magnesium Hydroxide (Milk Of Magnesia) 2,400 mg PRN QHS PRN PO CONSTIPATION; Start 11/24/17 at 18:15; Stop 11/30/17 at 13:58; Status DC Lorazepam (Ativan) 0.5 mg PRN Q6HRS PRN PO ANXIETY / AGITATION Last administered on 11/27/17 15:58; Start 11/24/17 at 19:00; Stop 11/30/17 at 13: 58; Status DC Olanzapine (ZyPREXA ZYDIS) 2.5 mg PRN Q1HR PRN PO PSYCHOSIS Last administered on 11/25/17 04:15; Start 11/24/17 at 19:00; Stop 11/30/17 at 13:58; Status DC Allopurinol (Zyloprim) 300 mg DAILY PO Last administered on 11/29/17 07:51; Start 11/25/17 at 09:00; Stop 11/30/17 at 13:58; Status DC Aspirin (Aspirin Enteric Coated) 81 mg DAILY PO Last administered on 11/29/17 07:51; Start 11/25/17 at 09:00; Stop 11/30/17 at 13:58; Status DC Atorvastatin Calcium (Lipitor) 20 mg HS PO Last administered on 11/29/17 20:14 ; Start 11/25/17 at 21:00; Stop 11/30/17 at 13:58; Status DC Diltiazem HCl (Cardizem 24hr Cd) 120 mg DAILY PO Last administered on 09:22; Start 11/25/17 at 09:00; Stop 11/30/17 at 13:58; Status DC Finasteride (Proscar) 5 mg DAILY PO Last administered on 11/29/17 07:52; Start 11/25/17 at 09:00; Stop 11/30/17 at 13:58; Status DC Acetaminophen/ Hydrocodone Bitart (Lortab 5/325) 1 tab QID PO Last administered on 11/26/17 20:19; Start 11/25/17 at 09:00; Stop 11/27/17 at 01 :18; Status DC Lidocaine/ Prilocaine (Emla) 1 alba BID TP Last administered on 11/26/17 20:19 ; Start 11/25/17 at 09:00; Stop 11/27/17 at 09:06; Status DC Metoprolol Tartrate (Lopressor) 12.5 mg BID PO Last administered on 11/25/17 09:08; Start 11/25/17 at 09:00; Stop 11/25/17 at 12:11; Status DC Ondansetron HCl (Zofran Odt) 4 mg PRN Q6HRS PRN PO NAUSEA; Start 11/25/17 at 05:45; Stop 11/30/17 at 13:58; Status DC Tamsulosin HCl (Flomax) 0.4 mg HS PO Last administered on 11/29/17 20:14; Start 11/25/17 at 21:00; Stop 11/30/17 at 13:58; Status DC Trazodone HCl (Desyrel) 50 mg QHS PO Last administered on 11/29/17 20:14; Start 11/25/17 at 21:00; Stop 11/30/17 at 13:58; Status DC Trazodone HCl (Desyrel) 50 mg PRN QHS PRN PO INSOMNIA Last administered on 22:36; Start 11/25/17 at 10:45; Stop 11/30/17 at 13:59; Status DC Sertraline HCl (Zoloft) 25 mg DAILY PO Last administered on 11/27/17 09:00; Start 11/26/17 at 09:00; Stop 11/27/17 at 19:15; Status DC Quetiapine Fumarate (SEROquel) 12.5 mg DAILY@0900,1300,1700 PO Last administered on 11/29/17 16:37; Start 11/25/17 at 13:00; Stop 11/30/17 at 13:59 ; Status DC Metoprolol Tartrate (Lopressor) 25 mg BID PO Last administered on 11/29/17 20: 14; Start 11/25/17 at 21:00; Stop 11/30/17 at 13:59; Status DC Oxycodone/ Acetaminophen (Percocet 5/325) 1 tab PRN Q6HRS PRN PO PAIN Last administered on 11/27/17 11:19; Start 11/27/17 at 01:15; Stop 11/27/17 at 17 :51; Status DC Lidocaine (Lidoderm) 1 patch DAILY TD Last administered on 11/29/17 07:50; Start 11/27/17 at 09:00; Stop 11/30/17 at 13:59; Status DC Vitamin D (Vitamin D3) 50,000 unit WEEKLY PO Last administered on 11/27/17 12 :33; Start 11/27/17 at 12:00; Stop 11/30/17 at 13:59; Status DC Ferrous Sulfate (Feosol) 325 mg DAILYWBKFT PO Last administered on 11/29/17 07: 56; Start 11/28/17 at 08:00; Stop 11/30/17 at 13:59; Status DC Fentanyl (Duragesic 25mcg/ Hr) 1 patch Q3DAYS TD Last administered on t 18:02; Start 11/27/17 at 18:30; Stop 11/30/17 at 13:59; Status DC Ascorbic Acid (Vitamin C) 500 mg BID PO Last administered on 11/29/17at 20:14; Start 11/27/17 at 21:00; Stop 11/30/17 at 13:59; Status DC Multivitamins/ Calcium (Thera-M Plus) 1 tab DAILY PO Last administered on at 07:52; Start 11/28/17 at 09:00; Stop 11/30/17 at 13:59; Status DC Oxycodone/ Acetaminophen (Percocet 5/325) 1 tab PRN Q4HRS PRN PO PAIN Last administered on 11/29/17at 06:24; Start 11/27/17 at 18:00; Stop 11/30/17 at 13:59 ; Status DC Duloxetine HCl (Cymbalta) 30 mg DAILY PO Last administered on 11/29/17at 07:50; Start 11/28/17 at 09:00; Stop 11/30/17 at 13:59; Status DC Mirtazapine (Remeron) 7.5 mg QHS PO Last administered on 11/29/17at 20:14; Start 11/27/17 at 21:00; Stop 11/30/17 at 13:59; Status DC Melatonin 3 mg PRN QHS PRN PO INSOMNIA; Start 11/28/17 at 20:30; Stop 11/30/17 at 13:59; Status DC Morphine Sulfate (Roxanol Conc) 10 mg PRN Q3HRS PRN SL PAIN Last administered on 11/29/17at 14:05; Start 11/29/17 at 10:00; Stop 11/30/17 at 13:59; Status DC Dextrose 1,000 ml @ 125 mls/hr Q8H IV ; Start 11/29/17 at 12:15; Stop 11/29/17 at 13:00; Status DC Dextrose 1,000 ml @ 125 mls/hr Q8H IV Last administered on 11/30/17at 04:29; Start 11/29/17 at 13:00; Stop 11/30/17 at 13:59; Status DC Acetaminophen (Tylenol) 650 mg PRN Q6HRS PRN PO PAIN / TEMP; Start 11/30/17 at 14:45; Status UNV Duloxetine HCl (Cymbalta) 30 mg DAILY PO ; Start 12/01/17 at 09:00; Status UNV Fentanyl (Duragesic 25mcg/ Hr) 1 patch Q3DAYS TD ; Start 12/03/17 at 09:00; Status UNV Ferrous Sulfate (Feosol) 325 mg DAILYWBKFT PO ; Start 12/01/17 at 08:00; Status UNV Lidocaine (Lidoderm) 1 patch DAILY TP ; Start 12/01/17 at 09:00; Status UNV Al Hydroxide/Mg Hydroxide (Mylanta Plus Xs) 15 ml PRN AFTMEAL PRN PO DYSPEPSIA ; Start 11/30/17 at 14:45; Status UNV Multi-Ingredient Ointment (Analgesic [place]) 1 alba PRN QID PRN TP PAIN; Start 11/30/17 at 14:45; Status UNV Mirtazapine (Remeron) 7.5 mg QHS PO ; Start 11/30/17 at 21:00; Status UNV Multivitamins/ Calcium (Thera-M Plus) 1 tab DAILY PO ; Start 12/01/17 at 09:00; Status UNV Olanzapine (ZyPREXA) 2.5 mg PRN Q1HR PRN PO ANXIETY / AGITATION; Start 11/30/17 at 14:45; Status UNV Trazodone HCl (Desyrel) 50 mg PRN QHS PRN PO INSOMNIA, MAY REPEAT X1; Start 11/30/17 at 14:45; Status UNV Trazodone HCl (Desyrel) 50 mg QHS PO ; Start 11/30/17 at 21:00; Status UNV Active Scripts Active Reported Melatonin 3 Mg Tablet 1 Tab PO PRN QHS PRN Trazodone Hcl 50 Mg Tablet 50 Mg PO PRN QHS PRN Trazodone Hcl 50 Mg Tablet 50 Mg PO QHS DURAGESIC 25mcg/hr (Fentanyl) 1 Each Patch.td72 1 Patch TD Q3DAYS Seroquel (Quetiapine Fumarate) 25 Mg Tablet 12.5 Mg PO TID@0900,1300,1700 Zyprexa (Olanzapine) 2.5 Mg Tablet 2.5 Mg PO PRN Q1HR PRN MDD 15 Thera M Plus Tablet (Multivits,Ca,Minerals/Iron/FA) 1 Each Tablet 1 Each PO DAILY Morphine Sulfate 10 Mg/1 Ml Syringe 10 Mg IV PRN Q3HRS Mirtazapine 7.5 Mg Tablet 7.5 Mg PO QHS Analgesic [place] (Methyl Salicylate/Menthol) 28 Gm Oint...g. 1 Gm TP PRN QID PRN Milk Of Magnesia (Magnesium Hydroxide) 2,400 Mg/10 Ml Oral.susp 2,400 Mg PO PRN QHS PRN Mag-Al Plus Xs Suspension (Mag Hydrox/Al Hydrox/Simeth) 30 Ml Oral.susp 15 Ml PO PRN AFTMEAL PRN Lidocaine 1 Each Adh..patch 1 Each TP DAILY Lorazepam 0.5 Mg Tablet 0.5 Mg PO PRN Q6HRS PRN Dextrose 5%-Ns Iv Solution (Dextrose 5 % And 0.9 % Nacl) 1,000 Ml Iv.soln 125 Ml IV .Q8H Feosol (Ferrous Sulfate) 325 Mg Tablet 325 Mg PO DAILYWBKFT Cymbalta (Duloxetine Hcl) 30 Mg Capsule.dr 30 Mg PO DAILY Vitamin D3 (Cholecalciferol (Vitamin D3)) 5,000 Unit Tablet 50,000 Unit PO WEEKLY Vitamin C (Ascorbic Acid) 500 Mg Capsule 500 Mg PO BID Tylenol (Acetaminophen) 325 Mg Tablet 650 Mg PO PRN Q6HRS PRN MDD 4000 Atorvastatin Calcium 20 Mg Tablet 1 Tab PO HS Aspir-Low (Aspirin) 81 Mg Tablet.dr 1 Tab PO DAILY Diltiazem 24HR Cd (Diltiazem Hcl) 120 Mg Cap.er.24h 1 Cap PO DAILY Finasteride 5 Mg Tablet 1 Tab PO DAILY Metoprolol Tartrate 25 Mg Tablet 25 Mg PO BID Ondansetron Odt (Ondansetron) 4 Mg Tab.rapdis 1 Tab PO PRN Q6-8HRS Percocet 5-325 Mg Tablet (Oxycodone Hcl/Acetaminophen) 1 Each Tablet 1 Tab PO PRN Q4HRS PRN Tamsulosin Hcl 0.4 Mg Cap.er.24h 1 Cap PO HS Zyloprim (Allopurinol) 300 Mg Tablet 300 Mg PO DAILY I have reviewed the current psychotropics carefully including drug interactions. Risk benefit ratio favors no change other than as noted in my dictated progress note. Diagnosis: Problems: (1) Dementia with behavioral disturbance (2) Dementia in Alzheimer's disease with delusions (3) Dementia in Alzheimer's disease with depression (4) Dementia, vascular, with delusions (5) Dementia, vascular, with depression (6) Impulse control disorder (7) Anxiety disorder LORA WEST MD Nov 30, 2017 18:17
[2017-11-30] MEDS ORDERED: traZODone 50 MG TABLET. PO SCH (21:00)
[2017-11-30] MEDS ORDERED: MIRTAZAPINE 7.5 MG TABLET. PO SCH (21:00)
[2017-12-01] MEDS ORDERED: FERROUS SULFATE 325 MG TABLET. PO SCH (08:00)
--- NOTE | 2017-12-01 08:22 | PN ---
DATE: 11/28/2017 PSYCHIATRIC PROGRESS NOTE This is a late entry 11/28/2017, covers elements not covered in my initial note 11/28/2017. SUBJECTIVE: I met with the patient the evening of 11/28/2017. The patient slept 2-1/2 hours previous evening, blood pressure was low, remains confused. REVIEW OF SYSTEMS: Ambulation impaired, in bed. No CV, , pulmonary, eye, ENT system symptoms on review. Seems in general distress. Reliability poor. MENTAL STATUS EXAM: Oriented to himself. Insight, judgment, recent and remote memory, attention, concentration, fund of knowledge poor, consistent with his diagnoses mentioned in my initial note. IMPRESSION: Major neurocognitive disorder, Alzheimer, vascular with depression, delusion, behavioral disturbance. PLAN: Continue current psychotropic, start melatonin 3 mg at bedtime. Adjust further as clinically indicated. MAN Brayan WEST MD DR: LOVE/brian JOB#: [id number] / [id number]
--- NOTE | 2017-12-01 08:25 | PN ---
DATE: 11/29/2017 PSYCHIATRIC PROGRESS NOTE This is a late entry 11/29/2017, covers elements not covered in my initial note 11/29/2017. SUBJECTIVE: I met with the patient the evening of 11/29/2017. Dr. Carreno has recommended hospice as did Dr. Davison. DPOA is agreeable. Sodium, BUN and creatinine elevated. Remains on fluids, complains of increased pain. ordered. Yelling out at times. REVIEW OF SYSTEMS: Ambulation impaired, in bed. No CV, , pulmonary, eye, ENT system symptoms on review. Reliability poor. MENTAL STATUS EXAM: Oriented to himself. Insight, judgment, recent and remote memory, attention, concentration, fund of knowledge poor, consistent with his diagnoses mentioned in my initial note. IMPRESSION: Major neurocognitive disorder, Alzheimer, vascular with depression, delusion, behavioral disturbance. PLAN: Continue psychotropics mentioned in my initial note. MAN Brayan WEST MD DR: LOVE/brian JOB#: [id number] / [id number]
[2017-12-01] MEDS ORDERED: MULTIVITAMIN with MINERAL TABLET. PO SCH (09:00)
[2017-12-01] MEDS ORDERED: LIDOCAINE (700MG/PATCH) PATCH. TP SCH (09:00)
[2017-12-01] MEDS ORDERED: DULoxetine HCL 30 MG CAPSULE.DR PO SCH (09:00)
--- NOTE | 2017-12-01 11:12 | DS ---
DATE OF DISCHARGE: 11/30/2017 DISCHARGE SUMMARY/PSYCHIATRIC PROGRESS NOTE This late entry, date of service 11/30/2017 covers elements not covered in my initial note of 11/30/2017. IDENTIFYING DATA: The patient is an 87-year-old male referred to us from [facility], referred by his primary care physician on account of increased agitation, anxiety, confusion. He is attempting to ambulate unassisted, screaming when by himself, sexually inappropriate, throwing himself on the floor. Much of this had worsened significantly since he was under general anesthesia a few months back. Reportedly, according to information obtained by social service staff from the family prior to that, the patient had some memory deficits, but the level of confusion has significantly more since the anesthesia. He was constantly yelling out in pain. SIGNIFICANT FINDINGS AND CLINICAL COURSE: Following admission, the patient was seen daily individually by myself, followed medically per Dr. Carreno/Dr. Davison. He remains confused, oriented to himself, sexually inappropriate at times, labile in his mood. Adjustments were made in his psychotropics and he seemed to be doing a little better from a psychiatric standpoint on Zyprexa and Ativan p.r.n., Seroquel 12.5 mg p.o. 09:00, 13:00, 17:00; trazodone 50 mg at bedtime, may repeat x 1 p.r.n. insomnia; Cymbalta 30 mg a day; Remeron 7.5 mg at bedtime; melatonin 3 mg at bedtime for insomnia that persisted despite the Remeron. Morning of 11/30/2017, the patient was found to be quite dehydrated with raised sodium and acute kidney injury and was transferred to the ICU per Dr. Davison prior to discharge. REVIEW OF SYSTEMS: Ambulation impaired. No CV, , pulmonary, eye, ENT system symptoms on review. Reliability poor. MENTAL STATUS EXAM: Oriented to himself. Insight, judgment, recent and remote memory, attention, concentration, fund of knowledge poor, consistent with his diagnosis. CONDITION AT DISCHARGE: Improved mood lability, but medically more compromised with possible hospice care. FINAL DIAGNOSES: Major neurocognitive disorder, Alzheimer, vascular with depression, delusion, behavioral disturbance; anxiety disorder, unspecified; impulse control disorder, unspecified; general medical debility; dehydration; acute kidney injury; hypernatremia. Rest unchanged from admission. Psychiatric and medical followup in the ICU per Dr. Davison. Time for discharge day management greater than 30 minutes. LORA WEST MD DR: LOVE/brian JOB#: [id number] / [id number]
[2017-12-03] MEDS ORDERED: fentaNYL 25MCG/HR 1 PATCH PATCH TD SCH (09:00)
== END 2017-11-30 13:58 | disposition short-term general hospital (02) | DRG 56 ==
LOC: ER 13:32 → GEROPSY 16:50 → ER 16:50
PROVIDERS: ADMIT Psychiatry & Neurology Psychiatry; ATTEND Psychiatry & Neurology Psychiatry
DX: G30.9 Alzheimer's disease, unspecified (principal); N17.0 Acute kidney failure with tubular necrosis; E87.0 Hyperosmolality and hypernatremia; E44.0 Moderate protein-calorie malnutrition; F01.51 Vascular dementia, unspecified severity, with behavioral disturbance; C44.90 Unspecified malignant neoplasm of skin, unspecified; I11.0 Hypertensive heart disease with heart failure; I48.2 Chronic atrial fibrillation; I50.9 Heart failure, unspecified; D64.9 Anemia, unspecified; F22 Delusional disorders; F02.81 Dementia in other diseases classified elsewhere, unspecified severity, with behavioral disturbance; F32.9 Major depressive disorder, single episode, unspecified; F41.9 Anxiety disorder, unspecified; Z68.24 Body mass index [BMI] 24.0-24.9, adult; D72.829 Elevated white blood cell count, unspecified; E78.5 Hyperlipidemia, unspecified; E86.0 Dehydration; F63.9 Impulse disorder, unspecified; G47.00 Insomnia, unspecified; M25.552 Pain in left hip; M25.551 Pain in right hip; M10.9 Gout, unspecified; M19.90 Unspecified osteoarthritis, unspecified site; N40.0 Benign prostatic hyperplasia without lower urinary tract symptoms; Z66 Do not resuscitate; G89.29 Other chronic pain; Z90.49 Acquired absence of other specified parts of digestive tract; Z88.8 Allergy status to other drugs, medicaments and biological substances
CPT/HCPCS: 36415; 51701; 73501; 80053; 80061; 81001; 82306; 82550; 82607; 83036; 83540; 83550; 83735; 84436; 84443; 84480; 84484; 85007; 85025; 85027; 86593; 93005; 96360; 96372; J1630; J2060; 99285-25

== ENCOUNTER 2017-11-30 14:15 | Inpatient (IN) | payer MEDICARE, BC ==
[~2017-11-30] VITALS: Ht 182.9 cm; Wt 79.5 kg
[~2017-11-30 14:15] MED LIST: ACET325T9 PO; ALLO300T67 PO; ASCO500C9 PO; ASPI81TA50 PO; ATOR20TA58 PO; CHOL500016 PO; DILT120C80 PO; DULO30CA2 PO; FENT1PAT90 TD; FERR325T72 PO; FINA5TAB4 PO; HYDR-2758 PO; LIDO30CR TP; LIDO700A39 TP; LORA0.5T PO; MAG30ORA2 PO; MAGN2400 PO; MELA3TAB2 PO; METH29OI TP; METO25TA4 PO; MIRT7.5T8 PO; MORP10SY2 IV; MULT-638 PO; OLAN2.5T3 PO; ONDA4TAB12 PO; OXYC-323 PO; QUET25TA5 PO; TAMS0.4C2 PO; TRAZ50TA15 PO; [UNRECOGNIZED DRUG - CODE] IV
[2017-11-30 14:42] VITALS: BP 147/79
[2017-11-30] MEDS ORDERED: traZODone 50 MG TABLET. PO PRN (15:00)
[2017-11-30] MEDS ORDERED: METHYL SALICYLATE/MENTHOL TOPICAL OINTMENT 29GM TUBE. TP PRN (15:00)
[2017-11-30] MEDS ORDERED: ACETAMINOPHEN 325 MG TABLET PO PRN (15:00)
[2017-11-30] MEDS ORDERED: OLANZapine 2.5 MG TABLET PO PRN (15:00)
[2017-11-30] MEDS ORDERED: MAG HYDROX/AL HYDROX/SIMETH 30 ML ORAL.SUSP PO PRN (15:00)
[2017-11-30] MEDS ORDERED: ONDANSETRON ODT 4 MG TAB.RAPDIS PO PRN (15:00)
[2017-11-30] MEDS ORDERED: MAGNESIUM HYDROXIDE 2,400 MG/30 ML ORAL.SUSP. PO PRN (15:30)
[2017-11-30] MEDS ORDERED: MELATONIN 3 MG TABLET PO PRN (15:30)
[2017-11-30 15:46] VITALS: BP 147/79
[2017-11-30] MEDS: IV DEXTROSE 5% 1,000 ML IV SCH (16:15)
[2017-11-30] MEDS ORDERED: fentaNYL 25MCG/HR 1 PATCH PATCH TD SCH (17:00)
[2017-11-30] MEDS: QUEtiapine 25 MG TABLET. PO SCH (17:00)
[2017-11-30] MEDS: MORPHINE SULFATE 4 MG/ML DISP.SYRIN. IV PRN ×2 (18:13→23:32)
[2017-11-30 18:45] VITALS: BP 130/66
[2017-11-30] MEDS ORDERED: TAMSULOSIN 0.4 MG CAP.ER.24H. PO SCH (21:00)
[2017-11-30] MEDS: ASCORBIC ACID 500 MG TABLET PO SCH (21:00)
[2017-11-30] MEDS: METOPROLOL TART IMMED RELEASE 25 MG TABLET PO SCH (21:00)
[2017-11-30] MEDS ORDERED: traZODone 50 MG TABLET. PO SCH (21:00)
[2017-11-30] MEDS ORDERED: ATORVASTATIN CALCIUM 20 MG TABLET PO SCH (21:00)
[2017-11-30] MEDS ORDERED: MIRTAZAPINE 7.5 MG TABLET. PO SCH (21:00)
[2017-11-30 22:49] VITALS: BP 116/70
[2017-12-01] MEDS: IV DEXTROSE 5% 1,000 ML IV SCH ×2 (00:42→08:38)
[2017-12-01] MEDS: MORPHINE SULFATE 4 MG/ML DISP.SYRIN. IV PRN ×2 (02:46→05:48)
[2017-12-01 05:03] VITALS: BP 114/70
[2017-12-01] MEDS ORDERED: FERROUS SULFATE 325 MG TABLET. PO SCH (08:00)
[2017-12-01] MEDS: METOPROLOL TART IMMED RELEASE 25 MG TABLET PO SCH (08:38)
[2017-12-01] MEDS: QUEtiapine 25 MG TABLET. PO SCH (08:39)
[2017-12-01] MEDS: ASCORBIC ACID 500 MG TABLET PO SCH (08:39)
[2017-12-01] MEDS ORDERED: MULTIVITAMIN with MINERAL TABLET. PO SCH (09:00)
[2017-12-01] MEDS ORDERED: ALLOPURINOL 100 MG TABLET. PO SCH (09:00)
[2017-12-01] MEDS ORDERED: ASPIRIN ENTERIC COATED 81 MG TABLET.DR. PO SCH (09:00)
[2017-12-01] MEDS ORDERED: FINASTERIDE 5 MG TABLET PO SCH (09:00)
[2017-12-01] MEDS ORDERED: DULoxetine HCL 30 MG CAPSULE.DR PO SCH (09:00)
[2017-12-01] MEDS ORDERED: LIDOCAINE (700MG/PATCH) PATCH. TP SCH (09:00)
[2017-12-01 09:07] LABS: BASO % 0 % (0-3); EOS # 0.1 x10^3/uL (0.0-0.7); EOS % 1 % (0-3); HEMATOCRIT 30.6 % (39.0-53.0); HEMOGLOBIN 9.6 g/dL (13.0-17.5); LYMPH # 0.8 x10^3/uL (1.0-4.8); LYMPH % 7 % (24-48); MEAN CORPUSCULAR HEMOGLOBIN 28 pg (25-35); MEAN CORPUSCULAR HGB CONC 31 g/dL (31-37); MEAN CORPUSCULAR VOLUME 89 fL (79-100); MONO # 0.9 x10^3/uL (0.0-1.1); MONO % 8 % (0-9); NEUT # 9.9 x10^3uL (1.8-7.7); NEUT % 84 % (31-73); PLATELET COUNT 238 x10^3/uL (140-400); RED BLOOD COUNT 3.45 x10^6/uL (4.30-5.70); RED CELL DISTRIBUTION WIDTH 18.4 % (11.5-14.5); WHITE BLOOD COUNT 11.8 x10^3/uL (4.0-11.0)
[2017-12-01 09:13] LABS: ALBUMIN 2.5 g/dL (3.4-5.0); ALBUMIN/GLOBULIN RATIO 0.6 (1.0-1.7); CALCIUM 8.7 mg/dL (8.5-10.1); CREATININE 1.7 mg/dL (0.7-1.3); GFR 38.2; TOTAL BILIRUBIN 0.5 mg/dL (0.2-1.0); TOTAL PROTEIN 6.5 g/dL (6.4-8.2)
[2017-12-01] MEDS ORDERED: MORPHINE SULFATE 4 MG/ML DISP.SYRIN. IV PRN (09:15)
[2017-12-01] MEDS ORDERED: MORPHINE SULFATE 20 MG/ML CONC SOLUTION. SL PRN (09:30)
[2017-12-01] MEDS ORDERED: diphenhydrAMINE HCL 25 MG CAPSULE PO PRN (09:30)
[2017-12-01] MEDS ORDERED: LORazepam 2 MG/ML VIAL IV PRN (09:30)
[2017-12-01] MEDS ORDERED: SCOPOLAMINE 1.5MG PATCH. TD SCH (09:30)
--- NOTE | 2017-12-01 10:59 | HP ---
ADMIT DATE: 11/30/2017 HISTORY OF PRESENT ILLNESS: The patient is an 87-year-old male patient who was admitted on 11/25/2017 to [facility] from [facility] in [place], [place]. He apparently was admitted there on 10/03/2017. Prior to that, he lived at home with his son. Evidently, he had had increased agitation, anxiety, confusion, attempting to ambulate without assistance, screaming. He had an episode where he showed off his penis to a DROSS SKIMMER and asked with one of them what they were going do about it. He has been yelling and disrupting activities and lowered himself to the floor several times, verbally and physically abusing staff, and was admitted to [facility] for inpatient psychiatric stabilization; however, the patient did not demonstrate any of these behaviors while in the [facility] and he is medically has been declining. He is not eating and drinking and his lab work are worsening. His serum sodium has risen to 155. His BUN and creatinine also have steadily risen. His BUN has risen to 32 and it was felt that the patient will benefit from admission to [address] [place] [address] for medical stabilization for hypernatremia and acute kidney injury and dehydration. The patient himself was actually when I saw him today was unresponsive, very encephalopathic. He does open his eyes, tracks, but does not really follow command. PAST MEDICAL HISTORY: His past medical history is significant for congestive heart failure, hypertension, dysphagia, walking, weight loss, chronic AFib, osteoarthritis, chronic pain, anxiety, hyperlipidemia, gout, benign prostatic hypertrophy. PAST SURGICAL HISTORY: Significant for right hip replacement. ALLERGIES: HE IS ALLERGIC TO DIGOXIN. MEDICATIONS: He is on following medications: He is on Tylenol 650 mg every 6 hours as needed, allopurinol 300 mg once a day, ascorbic acid 500 mg p.o. b.i.d., aspirin 81 mg once a day, atorvastatin 20 mg at bedtime, cholecalciferol 50,000 units once a week. He is on diltiazem 120 mg extended release daily, duloxetine 30 mg daily, fentanyl patch 25 mcg per hour topically daily, ferrous sulfate 325 mg daily with breakfast, finasteride 5 mg once a day, lidocaine topically on for 12 hours and off for 12 hours, lorazepam 0.5 mg every 6 hours as needed, magnesium hydroxide for milk of magnesia 30 mL p.o. daily p.r.n. for constipation, melatonin 3 mg tablet at bedtime, Metoprolol Tartrate 25 mg p.o. b.i.d., mirtazapine 7.5 mg at bedtime, Morphine Sulfate 10 mg IV p.r.n. q. 3 hourly, multivitamin with mineral 1 tablet once a day, olanzapine for Zyprexa 2.5 mg every hours as needed, ondansetron 4 mg every 6 hours, one tablet every 4 hours, 12.5 mg 3 times a day, tamsulosin 0.4 mg at bedtime, trazodone 50 mg at bedtime and trazodone 50 mg as needed for insomnia. FAMILY HISTORY: Noncontributory. SOCIAL HISTORY: He used to live with his son. He does not smoke, drink alcohol, or do recreational drugs. CODE STATUS: DNR. DIET: Mechanical soft honey thickened liquid. PHYSICAL EXAMINATION: GENERAL: When I saw him today, he was resting, slightly propped up in bed, no apparent distress, pale, no jaundice, cyanosis, or thyromegaly. No jugular venous distention. No limb edema. VITAL SIGNS: His heart rate was 63, blood pressure was 110/73, temperature was 98.1, respiratory rate was 20, and oxygen saturation was 89% on room air. HEAD, EYES, EARS, NOSE AND THROAT: Showed normocephalic, atraumatic. NECK: Supple. HEART: Showed normal first and second heart sounds with no gallop, rub or, murmur. CHEST: Clear to auscultation. No crepitation or rhonchi. ABDOMEN: Distended, soft, nontender. No guarding or rigidity. No organomegaly. Hernial orifice is intact. Bowel sounds normal. NEUROLOGIC: He was awake, opens eyes, tracks, but does not really follow command. All his cranial nerves seem to be grossly intact. He seemed to be able to move all extremities without difficulty, although he seemed to have extremely severe pain on movement of his right lower extremity. His intake over the last 24 hours was 1600. No output was recorded. LABORATORY AND DIAGNOSTIC DATA: Her lab work this morning showed a white cell count of 8000, hemoglobin 8.5, hematocrit 26.3, MCV 89, and platelet count of 231,000. His chemistry showed a serum sodium 150, potassium 3.5, chloride 118, bicarbonate 24, anion gap of 8, BUN 32, creatinine 2, estimated GFR was 31.7 His blood glucose was 96, calcium was 8.3, magnesium 2.4. Total bilirubin, AST, ALT, alkaline phosphatase were normal. Total protein was 5.7, albumin 2.1. His 25-hydroxy vitamin D was only 17. X-ray of his right hip and pelvis showed there is a retained oral contrast within the bowel. There is moderate degenerative disk disease of the lower lumbar spine, sacrum appears intact. Mild degenerative changes of the sacroiliac joint as noted. There is atherosclerotic vascular calcification, superior and inferior pubic rami intact. Symphysis pubis is normal and also a left total hip arthroplasty is identified and it appears intact. No lucency identified surrounding the hardware. There is moderate axial joint space narrowing involving the right hip joint. There is mild sacral subcortical sclerosis. There is no acute fracture or dislocation of the right joint. Mineralization is within normal limits. ASSESSMENT AND PLAN: In summary, this is an 87-year-old male patient who was basically transferred to [address] [place] [address] with acute kidney injury and severe dehydration and hypernatremia and altered mental status. We will continue with IV fluid. I will hold most of the medication that might be contributing to his altered mental status and follow his labs closely. We will also get the physical and occupational therapy to work with him and get Dr. Jones to follow him in [address] [place] [address]. TONY LOREDO MD DR: GISELA/brian JOB#: [id number] / [id number]
[2017-12-01 11:20] VITALS: BP 92/56
--- NOTE | 2017-12-01 14:51 | DS ---
DATE OF DISCHARGE: 12/01/2017 HISTORY OF PRESENT ILLNESS: The patient is an 87-year-old male patient who was basically admitted originally on 11/25/2017 to [facility] from [facility] in [place], [place]. He was apparently admitted there on 10/03/2017. Prior to that, he lived at home with his son. Evidently he had had increased agitation, anxiety, confusion attempting to ambulate without assistance, screaming. Had an episode where he showed off his penis to a FISHING FLOATS ASSEMBLER and asked one of them what they are going to do about it. He has been yelling and disrupting activities and lowered himself to the floor several times, verbally and physically abusive, abusing the staff and was admitted to [facility] for inpatient psychiatric stabilization. However, the patient did not demonstrate any of these behaviors while in the [facility]. He medically was declining. He is not eating or drinking and his lab work is worsening and increasing. His sodium has risen up to 155, BUN and creatinine has been steadily rising and a decision was made to transfer him to [address] [place] [address] to start him on IV fluid in the form of DW. The patient also was noted to be both functionally and cognitively declining and after discussion with the family, a decision was made to discharge him back to the [facility] to go on hospice care for end of life care. PHYSICAL EXAMINATION: GENERAL: When I saw him today, he looked well and was clearly in no apparent respiratory distress, pale, but no jaundice, cyanosis, or thyromegaly. No jugular venous distention. No limb edema. VITAL SIGNS: His heart rate was 125, blood pressure was 92/56, temperature was 97.3, respiratory rate 20, and oxygen saturation was 93% on room air. HEAD, EYES, EARS, NOSE AND THROAT: Showed he is normocephalic, atraumatic. NECK: Supple. HEART: Showed normal first and second sounds. No gallop, rub or murmur. CHEST: Clear to auscultation. No crepitation or rhonchi. ABDOMEN: Distended, soft, nontender. No guarding or rigidity. No organomegaly. Hernial orifice intact. Bowel sounds normal. NEUROLOGIC: He was demented without any obvious lateralizing sign. He opens eyes, tracks, but does not follow command. He moves extremities spontaneously and he is in severe pain, particularly his right hip joint. His intake over the last 24 hours was 1450, output was 800. LABORATORY WORK: Showed serum sodium is down to 144, potassium 4, chloride 111, bicarbonate 23, anion gap of 10, BUN 32, creatinine 1.7, estimated GFR was 58 mL per minute. His glucose was 67, calcium was 8.7. Total bilirubin, AST, ALT, alkaline phosphatase were normal. Total protein was 5.5, albumin 2.5. His white cell count was 11,800, hemoglobin 9.6, hematocrit 30, MCV 89 and platelet count 238,000. DISCHARGE MEDICATIONS: He will be discharged back to [facility] to continue on Roxanol 0.5 to 1 mL, i.e., 5 to 20 mg p.o. sublingually every 2 hours as needed for pain or shortness of breath; Ativan 2 mg/1 mL solution to take 0.25-1 mL that is 0.5-2 mg every 2 hours for anxiety and agitation. FINAL DISCHARGE DIAGNOSES: 1. Advanced dementia with progressive functional and cognitive decline. 2. Congestive heart failure. 3. Hypertension. 4. Dysphagia. 5. Benign prostatic hypertrophy. 6. Chronic atrial fibrillation. TONY LOREDO MD DR: GISELA/brian JOB#: [id number] / [id number]
[2017-12-01 15:04] VITALS: BP 112/70
[2017-12-04] MEDS ORDERED: CHOLECALCIFEROL (VITAMIN D3) 50,000 UNIT CAPSULE PO SCH (09:00)
== END 2017-12-01 17:16 | disposition hospice, home (50) | DRG 682 ==
LOC: UNDOADMIN 14:15 → 1 SOUTH 14:15
PROVIDERS: ADMIT Internal Medicine; ATTEND Internal Medicine
DX: N17.9 Acute kidney failure, unspecified (principal); G93.40 Encephalopathy, unspecified; E87.0 Hyperosmolality and hypernatremia; I48.2 Chronic atrial fibrillation; R13.10 Dysphagia, unspecified; F03.90 Unspecified dementia, unspecified severity, without behavioral disturbance, psychotic disturbance, mood disturbance, and anxiety; E86.0 Dehydration; I11.0 Hypertensive heart disease with heart failure; I50.9 Heart failure, unspecified; E78.5 Hyperlipidemia, unspecified; Z51.5 Encounter for palliative care; F41.9 Anxiety disorder, unspecified; M10.9 Gout, unspecified; N40.0 Benign prostatic hyperplasia without lower urinary tract symptoms; Z66 Do not resuscitate; Z96.641 Presence of right artificial hip joint; G89.29 Other chronic pain; M19.90 Unspecified osteoarthritis, unspecified site; Z88.8 Allergy status to other drugs, medicaments and biological substances
CPT/HCPCS: 36415; 80053; 85025; J2270